=== PATIENT | female | born 1975 | race Caucasian/White ===

== ENCOUNTER 2016-12-26 15:37 | Day surgery (SDC) | payer MEDICAID, OTHER ==
[~2016-12-26] VITALS: Ht 167.6 cm; Wt 96.6 kg
[2016-12-26 16:01] VITALS: BP 122/62
--- NOTE | 2016-12-26 17:00 | NUR ---
Dr. Jessica evaluating patient in [place].
--- NOTE | 2016-12-26 17:08 | NUR ---
Blood draw completed by PHLEB in [place]. Patient returned to ED lobby to wait for an available bed.
--- NOTE | 2016-12-26 17:22 | NUR ---
Patient taken from ED lobby to US via wheelchair by tech.
[2016-12-26 17:38] LABS: BASOPHILS # (AUTO) 0.2 K/uL (0.00-0.22); EOSINOPHILS # (AUTO) 0.1 K/uL (0-0.4); HEMATOCRIT 42.1 % (36-48); HEMOGLOBIN 13.8 g/dL (12.0-16.0); LYMPHOCYTES # (AUTO) 0.9 K/uL (2.5-16.5); MEAN CORPUSCULAR HEMOGLOBIN 30 pg (27-31); MEAN CORPUSCULAR HGB CONC 33 g/dL (33-37); MEAN CORPUSCULAR VOLUME 90 fL (80-94); MONOCYTES # (AUTO) 0.7 K/uL (0.8-1.0); NEUTROPHILS # (AUTO) 2.9 K/uL (1.8-7.7); PLATELET COUNT (AUTO) 194 K/uL (140-450); RED BLOOD CELL COUNT(AUTO) 4.69 MIL/uL (4.20-5.40); RED CELL DISTRIBUTION WIDTH 14.2 % (11.6-13.7); WHITE BLOOD COUNT (AUTO) 4.9 K/uL (4.8-10.8)
[2016-12-26 17:57] LABS: ALBUMIN 3.3 g/dL (3.4-5.0); ANION GAP 13.5 (8-16); CARBON DIOXIDE 22.9 mmol/L (21-32); CREATININE 0.7 mg/dL (0.6-1.3); TOTAL BILIRUBIN 2.6 mg/dL (0.0-1.0)
[2016-12-26 18:02] LABS: POTASSIUM 2.4 mmol/L (3.5-5.1)
--- NOTE | 2016-12-26 18:25 | NUR ---
PT REFERRED TO ER PER TYPEWRITER ASSEMBLER DR. CARCAMO FOR EVALUATON S/P MISSED . DENIES N/V/D; SKIN IS PINK/WARM/DRY; AAOX4 WITH EVEN AND STEADY GAIT; LUNGS CLEAR BL; HR EVEN AND REGULAR; PT DENIES ANY FEVER, CP, SOB, OR COUGH AT THIS TIME; PATIENT STATES PAIN OF 8/10 AT THIS TIME; VSS; PATIENT POSITIONED FOR COMFORT; HOB ELEVATED; BEDRAILS UP X2; BED DOWN. ER MD MADE AWARE OF PT STATUS.
--- NOTE | 2016-12-26 18:40 | NUR ---
PT UNABLE TO PROVIDE URINE SAMPLE AT THIS TIME
--- NOTE | 2016-12-26 19:08 | NUR ---
RN UNAVAILABLE FOR REPORT AT THIS TIME
--- NOTE | 2016-12-26 19:27 | NUR ---
Patient will be admitted to care of DR CARCAMO. Admited to MS. Will go to room 119A. Belongings list completed. Report to JESSIE BLAKELY.
[2016-12-26] MEDS ORDERED: FURO-570 PO (19:38)
[2016-12-26] MEDS ORDERED: SILD50TA PO (19:39)
[2016-12-26] MEDS ORDERED: POTA10TE30 PO (19:40)
[2016-12-26 19:50] VITALS: BP 122/77
--- NOTE | 2016-12-26 19:50 | NUR ---
RECEIVED REPORT FROM ER NURSE, PT ARRIVED ON UNIT IN STABLE CONDITION ON GURNEY, PT AAOX4, PT IS ON RA, IV TO R WRIST 22G, PATENT AND INTACT. SKIN IS INTACT. 1+ PITTING EDEMA ON BILATERAL LOWER EXTREMITIES. LUNGS SOUNDS CLEAR, BOWEL SOUNDS PRESENT IN ALL FOUR QUADRANTS. INITIAL ASSESSMENT COMPLETED, PLAN OF CARE DISCUSSED WITH PT, PT VERBALIZED UNDERSTANDING. ALL SAFETY PRECAUTIONS MET, CALL LIGHT WITHIN REACH, WILL CONTINUE TO MONITOR.
--- NOTE | 2016-12-26 21:05 | NUR ---
PAGED DR. Radha CARCAMO FOR ORDERS FOR IV FLUIDS, PAIN MEDICATION, AND O2, PT IS SOB AND O2 SAT AT 92% RA.
--- NOTE | 2016-12-26 21:08 | NUR ---
DR. Radha CARCAMO CALLED BACK WITH NEW ORDERS, WILL CARRY OUT ORDERS ORDERED.
[2016-12-26] MEDS ORDERED: MORPHINE SULFATE 10 MG/ML SYR IVP PRN (21:10)
[2016-12-26] MEDS ORDERED: LACTATED RINGERS 1,000 ML IV SCH (21:10)
--- NOTE | 2016-12-26 21:43 | NUR ---
PAGED DR. Radha CARCAMO REGARDING POTASSIUM LEVEL 2.4, CALLED BACK, ORDERED 40 MEQ KCL AND HE SAID HE WILL CALL HOTEL ENGINEER FOR SURGERY 365.
--- NOTE | 2016-12-26 21:45 | NUR ---
PAGED DR. Radha CARCAMO FOR POTASSIUM LEVEL OF 2.4. CALLED BACK, MADE AWARE OF RESULT, NO ORDER MADE. Addendum: 12/26/16 at 2333 by Debby Toney RN @[phone] CLAUDETTE CARCAMO TO CLARIFY THE 40 KCL ORDER IF IV OR PO. BUT HE SAID NOT TO GIVE IT FOR NOW.
--- NOTE | 2016-12-26 22:10 | NUR ---
PT SIGNED CONSENT FORMS FOR SURGERY AND BLOOD TRANSFUSION. PT VERBALIZED UNDERSTANDING.
--- NOTE | 2016-12-26 22:30 | NUR ---
PT VOIDED AND SPECIMEN SENT TO THE LAB
--- NOTE | 2016-12-26 22:48 | NUR ---
PICKED UP BY BED TO OR BY OR NURSE, PT IN STABLE CONDITION.
[2016-12-26 22:59] LABS: APPEARANCE,URINE CLOUDY (CLEAR); BILIRUBIN,URINE 2+ (NEGATIVE); BLOOD, URINE 3+ (NEGATIVE); COLOR,URINE BROWN (YELLOW); LEUKOCYTE ESTERASE ,URINE TRACE (NEGATIVE); NITRITE, URINE NEGATIVE (NEGATIVE); UGLUCOSE NEGATIVE (NEGATIVE)
--- NOTE | 2016-12-26 23:10 | NUR ---
PT CAME BACK FROM OR. SURGERY NOT DONE DUE TO LOW POTASSIUM LEVEL. SURGERY RESCHEDULED FOR TOMORROW. WILL CARRY OUT NEW ORDERS.
[2016-12-26 23:17] LABS: HYALINE CASTS, URINE 0-10 /LPF (None Seen); RBC,URINE 11-20 (MOD) /HPF (0-5); WBC,URINE 16-25 (MOD) /HPF (0-5)
[2016-12-26] MEDS ORDERED: POTASSIUM CHL 40 MEQ/ D5-1/2NS 1,000 ML IV SCH (23:20)
--- NOTE | 2016-12-26 23:45 | NUR ---
IVF LR @100ML /HR DISCONTINUED . NEW IV FLUIDS ORDERED.
[2016-12-26] MEDS: POTASSIUM CHL 40 MEQ/ D5-1/2NS 1,000 ML IV SCH (23:49)
--- NOTE | 2016-12-26 23:49 | NUR ---
NEW IVF D51/2 NS WITH 40 MEQ KCL @125 ML /HR STARTED PER MD ORDER.
--- NOTE | 2016-12-27 00:10 | NUR ---
PAGED AGAIN DR. CARCAMO FOR URINE HAS 4+ BACTERIA. MADE AWARE WITH ORDER.
[2016-12-27 00:30] VITALS: BP 136/66
--- NOTE | 2016-12-27 02:32 | NUR ---
PT RESTING IN BED COMFORTABLY NO S/S OF DISTRESS NOTED. ALL SAFETY PRECAUTIONS MET, CALL LIGHT WITHIN REACH, WILL CONTINUE TO MONITOR.
[2016-12-27 04:00] VITALS: BP 105/73
--- NOTE | 2016-12-27 04:30 | NUR ---
CHECKED IN ON PT. PT RESTING IN BED WITH TV ON. NO S/S OF DISTRESS NOTED. ALL SAFETY PRECAUTIONS MET, CALL LIGHT WITHIN REACH, WILL CONTINUE TO MONITOR.
[2016-12-27] MEDS ORDERED: AMPICILLIN 1,000 MG VIAL ONE (05:04)
[2016-12-27] MEDS: AMPICILLIN 500 MG in NACL 0.9% 50 ML IV SCH ×3 (05:07→21:22)
--- NOTE | 2016-12-27 05:07 | NUR ---
IST DOSE OF AMPICILLIN 500MG IVPB STARTED. WILL CONTINUE TO MONITOR.
[2016-12-27 06:07] LABS: HEMATOCRIT 40.1 % (36-48); HEMOGLOBIN 13.2 g/dL (12.0-16.0); MEAN CORPUSCULAR HEMOGLOBIN 30 pg (27-31); MEAN CORPUSCULAR HGB CONC 33 g/dL (33-37); MEAN CORPUSCULAR VOLUME 90 fL (80-94); PLATELET COUNT (AUTO) 180 K/uL (140-450); RED BLOOD CELL COUNT(AUTO) 4.47 MIL/uL (4.20-5.40); RED CELL DISTRIBUTION WIDTH 14.2 % (11.6-13.7); WHITE BLOOD COUNT (AUTO) 4.8 K/uL (4.8-10.8)
[2016-12-27 06:38] LABS: ALBUMIN 2.9 g/dL (3.4-5.0); ANION GAP 10.9 (8-16); CARBON DIOXIDE 24.7 mmol/L (21-32); CREATININE 0.8 mg/dL (0.6-1.3); TOTAL BILIRUBIN 2.4 mg/dL (0.0-1.0)
[2016-12-27 06:41] LABS: POTASSIUM 2.6 mmol/L (3.5-5.1)
--- NOTE | 2016-12-27 06:47 | NUR ---
@ 0640 LAB CALLED FOR POTASSIUM LEVEL STILL LOW 2.6. PAGED DR. CARCAMO @5299 AND MADE HIM AWARE . HE SAID TO CONTINUE WITH THE IVF WITH KCL AND ALSO CALL DR. MARIN ,ANESTHESIOLOGIST. WHICH I DID AT THIS TIME. SHE WAS MADE AWARE THAT K LEVEL STILL LOW. SHE SAID NO SURGERY YET , TO CONTINUE WITH THE SAME IVF D51/2 NS WITH 40 MEQ KCL @ 125ML/HR.
[2016-12-27 07:09] LABS: EOSINOPHILS % (MANUAL) 2 % (0-4); LYMPHOCYTES % (MANUAL) 30 % (20-46); MONOCYTES % (MANUAL) 15 % (5-12)
[2016-12-27] MEDS ORDERED: MORPHINE SULFATE 4 MG/ML SYR IM/IVP PRN (07:30)
[2016-12-27] MEDS ORDERED: IBUPROFEN 800 MG TAB PO PRN (07:30)
[2016-12-27] MEDS ORDERED: ONDANSETRON 4 MG/2 ML VIAL IVP PRN (07:30)
[2016-12-27] MEDS ORDERED: ACETAMINOPHEN/CODEINE 300/30MG 1 TAB PO PRN (07:30)
--- NOTE | 2016-12-27 07:30 | NUR ---
RECEIVED ON BED AAOX4. NO C/O PAIN AT THIS TIME. NO SOB NOTED. ON 2 LPM OXYGEN VIA NASAL CANNULA (91% O2 SATS). IV TO RT WRIST/HAND PATENT AND INTACT. CHEST CLEAR. ABDOMEN SOFT. BOWEL SOUNDS PRESENT. +1 PITTING EDEMA ONM BLE NOTED. INSTRUCTED PT TO ELEVATE BLE WHILE ON BED. NPO MAINTAINED FOR PROCEDURE. INSTRUCTED PT TO CALL FOR ASSISTANCE, CALL LIGHT WITHIN REACH. PT VERBALIZED UNDERSTANDING.
--- NOTE | 2016-12-27 07:35 | NUR ---
ENDORSED PT IN STABLE CONDITION TO AM NURSE FOR CONTINUITY OF CARE.
[2016-12-27 08:00] VITALS: BP 115/59
[2016-12-27] MEDS: POTASSIUM CHL 40 MEQ/ D5-1/2NS 1,000 ML IV SCH ×3 (08:41→17:54)
--- NOTE | 2016-12-27 09:30 | NUR ---
PT AMBULATED TO THE BATHROOM INDEPENDENTLY. MODERATE VAGINAL BLEEDING NOTED. WILL CONTIN UE TO MONITOR.
[2016-12-27] MEDS ORDERED: PROPOFOL 200 MG/20 ML VIAL IV ONE (10:51)
--- NOTE | 2016-12-27 11:00 | NUR ---
PT WHEELED TO SURGERY IN STABLE CONDITION.
[2016-12-27] MEDS ORDERED: MIDAZOLAM 2 MG/2 ML VIAL ONE (11:05)
[2016-12-27] MEDS ORDERED: fentaNYL 0.05 MG/ML VIAL ONE (11:05)
[2016-12-27] MEDS ORDERED: MIDAZOLAM 2 MG/2 ML VIAL IV ONE ×2 (11:30)
[2016-12-27] MEDS ORDERED: METOCLOPRAMIDE 10 MG/2 ML INJ VIAL IVP PRN ×2 (11:30)
[2016-12-27] MEDS ORDERED: MORPHINE SULFATE 4 MG/ML SYR IVP PRN ×4 (11:30)
[2016-12-27] MEDS ORDERED: MORPHINE SULFATE 2 MG/ML SYR IVP PRN ×2 (11:30)
[2016-12-27 12:00] VITALS: BP 93/60
--- NOTE | 2016-12-27 12:00 | NUR ---
PT CAME BACK FROM SURGERY IN STABLE CONDITION, S/P DILATATION AND CURETTAGE. NO VAGINAL BLEEDING NOTED ON PERIPAD AT THIS TIME. WILL CONTINUE TO MONITOR.
[2016-12-27 12:30] VITALS: BP 96/71
--- NOTE | 2016-12-27 15:00 | NUR ---
VIVIANA CARCAMO, AWAITING FOR CALL BACK. Addendum: 12/27/16 at 1714 by Rosario Kimble RN DISREGARD ABOVE NOTES, WRONG ENTRY.
[2016-12-27 15:45] VITALS: BP 122/53
--- NOTE | 2016-12-27 15:45 | NUR ---
LATEST TEMP: 99.0 F, PT IS HAVING CHILLS, RESPIRATORY THERAPIST CHANGED OXYGEN CANNULA TO SIMPLE MASK AT 7 LPM. PT'S O2 SATS AT 91%. PT AAOX4, BUT STATED SHE IS TIRED AND NOT READY TO GO HOME TODAY. WILL LET DR. Milady CARCAMO KNOW.
--- NOTE | 2016-12-27 16:00 | NUR ---
PAGED DR. Milady CARCAMO, AWAITING FOR CALL BACK.
--- NOTE | 2016-12-27 16:15 | NUR ---
CALLED DR. DEYSI MARIN (ANESTHESIOLOGIST) AND NOTIFIED REGARDING PT'S CHILLS AFTER SURGERY, DR. MARIN STATED IT IS NOT NORMAL AND IS NOT RELATED TO ANESTHESIA. DR. MARIN STATED THAT IT COULD BE FROM PT'S URINARY TRACT INFECTION. WILL PAGED DR. Milady CARCAMO AGAIN TO NOTIFY HIM REGARDING PT'S STATUS.
--- NOTE | 2016-12-27 17:10 | NUR ---
SPOKE WITH OVER THE PHONE. DISCHARGE ORDER CANCELLED. NEW ORDERS GIVEN.
--- NOTE | 2016-12-27 17:30 | NUR ---
PT VOIDED FREELY ON THE BEDSIDE COMMODE, MODERATE VAGINAL BLEEDING NOTED. PT ALSO HAD BMX1, BROWN SOFT STOOLS NOTED ON SMALL AMOUNTS.
--- NOTE | 2016-12-27 18:50 | NUR ---
NO MORE CHILLS NOTED. NO SOB NOTED. NO C/O PAIN AT THIS TIME. PT TOLERATED CLEAR LIQUIDS WELL. NO N&V NOTED. WILL ENDORSE TO NEXT SHIFT NURSE FOR CONTINUITY OF CARE.
--- NOTE | 2016-12-27 19:30 | NUR ---
RECEIVED REPORT FROM DAY RN. PATIENT RESTING IN BED, NO S/S OF ACUTE DISTRESS NOTED, RESPIRATION EVEN AND UNLABORED WITH SIMPLE MASK 7L, O2SAT 91%. PATIENT AWAKE ALERT ORIENTED X4. IV INTACT AND PATENT, INFUSING D5 1/5 NS WITH KCL 40MEQ AT 75ML/HR. PLAN OF CARE DISCUSSED, VERBALIZED UNDERSTANDING. CALL LIGHT WITHIN REACH, SAFETY MEASURE ENSURED, WILL CONTINUE TO MONITOR.
--- NOTE | 2016-12-27 21:27 | NUR ---
PM AMPICILLIN STARTED, PATIENT TOLERATED WELL. CALL LIGHT WITHIN REACH, SAFETY MEASURE ENSURED, WILL CONTINUE TO MONITOR.
--- NOTE | 2016-12-27 23:54 | NUR ---
ENDORSED PLAN OF TO CHARGE NURSE ABIGAIL, PATIENT IS SLEEPING AT THIS TIME. RESPIRATION EVEN AND UNLABORED, CALL LIGHT WITHIN REACH, SAFETY MEASURE ENSURED, PATIENT IS IN STABLE CONDITION.
[2016-12-28] VITALS: BP 103/68
--- NOTE | 2016-12-28 | NUR ---
RECEIVED PT FROM NURSE STONE FOR CONTINUITY OF CARE.NO DISTRESS N OTED O2 ON AT 6L/NC O2 SAT 97%. PT STATED THAT THEY PUT THE O2 WHEN SHE CAME BACK FROM SURGERY. O2 OFF AND WILL CHECKED O2 SAT LATER.
--- NOTE | 2016-12-28 02:00 | NUR ---
PT SLEEPING WHECKED,NO SIGNS OF RESPIRATORY DISTRESS.
--- NOTE | 2016-12-28 04:00 | NUR ---
V/S TAKEN O2 SAT 97% WITH O2 OFF, NO RESPIRATORY DISTRESS NOTED OR C/O PAIN.
[2016-12-28] MEDS: POTASSIUM CHL 40 MEQ/ D5-1/2NS 1,000 ML IV SCH ×2 (04:10→08:25)
[2016-12-28] MEDS: AMPICILLIN 500 MG in NACL 0.9% 50 ML IV SCH (04:38)
[2016-12-28 04:56] VITALS: BP 104/65
[2016-12-28 06:19] LABS: HEMOGLOBIN 13.3 g/dL (12.0-16.0); MEAN CORPUSCULAR HEMOGLOBIN 29 pg (27-31); MEAN CORPUSCULAR HGB CONC 32 g/dL (33-37); MEAN CORPUSCULAR VOLUME 90 fL (80-94); PLATELET COUNT (AUTO) 171 K/uL (140-450); RED BLOOD CELL COUNT(AUTO) 4.55 MIL/uL (4.20-5.40); RED CELL DISTRIBUTION WIDTH 14.5 % (11.6-13.7); WHITE BLOOD COUNT (AUTO) 17.4 K/uL (4.8-10.8)
--- NOTE | 2016-12-28 06:23 | NUR ---
PT RESTING QUIETLY, NO SIGNS OF RESPIRATORY.
[2016-12-28 06:43] LABS: ALBUMIN 2.9 g/dL (3.4-5.0); ANION GAP 13.3 (8-16); CARBON DIOXIDE 23.1 mmol/L (21-32); CREATININE 0.8 mg/dL (0.6-1.3); POTASSIUM 3.4 mmol/L (3.5-5.1); TOTAL BILIRUBIN 4.4 mg/dL (0.0-1.0)
--- NOTE | 2016-12-28 07:01 | NUR ---
ASSUMED CONTINUITY OF CARE. NO SIGNS AND SYMPTOMS OF ACUTE DISTRESS NOTED. INITIAL ASSESSMENT DONE. KEEP COMFORTABLE ON BED. EXPLAINED DIAGNOSIS, PLAN OF CARE, POST-OP CARE, PAIN MANAGEMENT TEACHING, USE OF CALL LIGHT/BED/TV/BATHROOM. VERBALIZE UNDERSTANDING. CALL LIGHT WITHIN REACH.
[2016-12-28 07:10] LABS: LYMPHOCYTES % (MANUAL) 10 % (20-46); MONOCYTES % (MANUAL) 3 % (5-12)
--- NOTE | 2016-12-28 07:10 | NUR ---
Patient's Plan of Care was discussed and reviewed with DIGITAL PRINTER: YUE AGUILAR.
--- NOTE | 2016-12-28 07:29 | NUR ---
CHECKED ON PT. PT SPO2 IS 89% ON ROOM AIR. PT REFUSED TO USE OXYGEN. JESSIE TURNER AT BEDSIDE. EXPLAINED TO PT IMPORTANCE OF OXYGEN BUT STILL REFUSED. WILL CONTINUE TO MONITOR. Addendum: 12/28/16 at 0737 by Ej Cheung RT NO SOB OR DISTRESS NOTED.
[2016-12-28 08:00] VITALS: BP 107/58
--- NOTE | 2016-12-28 08:45 | NUR ---
EXPLAINED PT. ABOUT MRSA NARES POSITIVE, CONTACT ISOLATION PRECAUTION EDUCATION, AND TREATMENT. VERBALIZED UNDERSTANDING.
[2016-12-28] MEDS ORDERED: POTA10TE30 PO (10:13)
[2016-12-28] MEDS ORDERED: POTA8TER12 PO (10:14)
--- NOTE | 2016-12-28 10:55 | NUR ---
D/C HOME VIA WHEELCHAIR. AWAKE, ALERT, AND ORIENTED X4. SPEECH CLEAR. NO C/O PAIN. NO C/O VAGINAL BLEEDING. NO SOB, NOTED. IN STABLE CONDITION. INFORMED CHARGE NURSE CINTHIA RICHARDSON.
[2016-12-29] MEDS ORDERED: CHLORHEXADINE GLUC 2% CLOTH TP SCH (09:00)
[2016-12-29] MEDS ORDERED: MUPIROCIN 2% OINT 22 GM TUBE TP SCH (12:00)
== END 2016-12-28 10:55 | disposition home or self-care (01) ==
LOC: MED 15:37 → MDS 18:41 → MTU 18:41 → MDS 12-28 10:55
PROVIDERS: ATTEND Obstetrics & Gynecology
DX: O03.4 Incomplete spontaneous abortion without complication (principal); I50.9 Heart failure, unspecified; Z90.49 Acquired absence of other specified parts of digestive tract; Z98.890 Other specified postprocedural states; Z79.899 Other long term (current) drug therapy; Z3A.10 10 weeks gestation of pregnancy
CPT/HCPCS: 36415; 59812; 76817; 80053; 81001; 84702; 85025; 85730; 86886; 86900; 86901; 87081; 87086; 94760; J0290; J2250; J2270; J2704; J3010; J7120

== ENCOUNTER 2017-03-04 23:44 | Inpatient (IN) | payer OTHER ==
[~2017-03-04] VITALS: Ht 167.6 cm; Wt 108.9 kg
[~2017-03-04 23:44] MED LIST: FURO-570 PO; POTA10TE30 PO; POTA8TER12 PO; SILD50TA PO
[2017-03-04 23:47] VITALS: BP 144/81
--- NOTE | 2017-03-04 23:54 | NUR ---
AMBULATED TO ER BED 1
--- NOTE | 2017-03-05 00:01 | NUR ---
Patient being evaluated by physician at bedside.
[2017-03-05 00:17] LABS: HEMATOCRIT 38.1 % (36-48); HEMOGLOBIN 12.3 g/dL (12.0-16.0); MEAN CORPUSCULAR HEMOGLOBIN 27 pg (27-31); MEAN CORPUSCULAR HGB CONC 32 g/dL (33-37); MEAN CORPUSCULAR VOLUME 84 fL (80-94); PLATELET COUNT (AUTO) 237 K/uL (140-450); RED BLOOD CELL COUNT(AUTO) 4.55 MIL/uL (4.20-5.40); RED CELL DISTRIBUTION WIDTH 15.1 % (11.6-13.7); WHITE BLOOD COUNT (AUTO) 5.3 K/uL (4.8-10.8)
[2017-03-05 00:33] LABS: ALBUMIN 3.3 g/dL (3.4-5.0); ANION GAP 13.3 (8-16); CARBON DIOXIDE 27.9 mmol/L (21-32); TOTAL BILIRUBIN 3.9 mg/dL (0.0-1.0)
[2017-03-05 00:34] LABS: EOSINOPHILS % (MANUAL) 1 % (0-4); LYMPHOCYTES % (MANUAL) 21 % (20-46); MONOCYTES % (MANUAL) 10 % (5-12)
[2017-03-05 00:37] LABS: POTASSIUM 2.2 mmol/L (3.5-5.1)
[2017-03-05] MEDS ORDERED: KCL 20 MEQ/WATER INJ PREMIX 100 ML IV ONE (00:40)
[2017-03-05 00:45] LABS: CREATINE KINASE MB 2.4 ng/mL (0-3.6)
[2017-03-05] MEDS ORDERED: FUROSEMIDE 40 MG/4 ML VIAL IVP ONE (00:45)
[2017-03-05] MEDS ORDERED: POTASSIUM CHLORIDE 20% 40 MEQ/15 ML UDC PO ONE (00:50)
[2017-03-05] MEDS ORDERED: IPRATROPIUM 0.02% 0.5 MG/2.5 ML NEBU INH PRN (00:55)
[2017-03-05] MEDS ORDERED: MAGNESIUM OXIDE 400 MG TAB PO PRN (00:55)
[2017-03-05] MEDS ORDERED: MAG SULF 2000 MG/WATER PREMIX 50 ML IV PRN (00:55)
[2017-03-05] MEDS ORDERED: DOCUSATE SODIUM 250 MG GELCAP PO PRN (00:55)
[2017-03-05] MEDS ORDERED: cloNIDine 0.1 MG TAB PO PRN (00:55)
[2017-03-05] MEDS ORDERED: ZOLPIDEM 5 MG TAB PO PRN (00:55)
[2017-03-05] MEDS ORDERED: ONDANSETRON 4 MG/2 ML VIAL IVP PRN (00:55)
[2017-03-05] MEDS ORDERED: ALUMINUM HYD/MAG/SIMETHICONE 30 ML UDC PO PRN (00:55)
[2017-03-05] MEDS ORDERED: ACETAMINOPHEN 325 MG TAB PO PRN (00:55)
[2017-03-05] MEDS ORDERED: diphenhydrAMINE 50 MG/ML VIAL IVP PRN (00:55)
[2017-03-05] MEDS ORDERED: ACETAMINOPHEN 650 MG SUPP RC PRN (00:55)
[2017-03-05] MEDS ORDERED: HYDROcodone/APAP 5/325 MG 1 TAB TAB PO PRN ×2 (00:55)
[2017-03-05] MEDS ORDERED: BISACODYL 10 MG SUPP RC PRN (00:55)
[2017-03-05] MEDS ORDERED: ALBUTEROL 0.083% 2.5 MG/3 ML NEBU INH PRN (00:55)
[2017-03-05] MEDS ORDERED: LORazepam 2 MG/ML VIAL IVP PRN (00:55)
[2017-03-05] MEDS ORDERED: MORPHINE SULFATE 2 MG/ML SYR IVP PRN (00:55)
[2017-03-05] MEDS ORDERED: SODIUM PHOSPHATE 118 ML ENEM RC PRN (00:55)
[2017-03-05] MEDS ORDERED: POTASSIUM CHLORIDE 10 MEQ TABER PO PRN (00:55)
--- NOTE | 2017-03-05 01:00 | NUR ---
41Y/F PT. PRESENTS TO ED WITH C/O DIFFICULTY BREATHING X 2 DAYS. PT. HX. CHF, HTN. AAO X4, AMBULATORY WITH STEADY GAIT. RESPIRTAIONS ROOM AIR, IRREGULAR, BL LUNG CLEAR. O2 SAT 87%, PLACE ON O2 2LPM VIA NC, O 2 SAT 92-93%. SKIN WARM AND DRY. VSS, NO PAIN AT THIS TIME. ER MD MADE AWARE OF PT. STATUS.
--- NOTE | 2017-03-05 01:15 | NUR ---
O2 SAT 88% INCREASE O2 VIA NC TO 4LPM, O2 SAT 93%
[2017-03-05 01:44] LABS: BARBITURATE, URINE NEG. ng/ml (NEG <=200); BENZODIAZEPINE, URINE NEG. ng/mL (NEG <=200); CANNABINOID, URINE NEG. ng/mL (NEG <=50); COCAINE, URINE NEG. ng/mL (NEG <=300); OPIATE, URINE NEG. ng/mL (NEG <=2000); PHENCYCLIDINE SCREEN,URINE NEG. ng/mL (NEG <=25)
--- NOTE | 2017-03-05 01:45 | NUR ---
Patient will be admitted to care of . Admited to TELEMETRY. Will go to [id number]. Belongings list completed. Report to JESSIE HOYOS.
[2017-03-05 02:00] VITALS: BP 122/76
--- NOTE | 2017-03-05 02:00 | NUR ---
RECEIVED PT TRANSFERRED FROM ER VIA RJOHNSON, PT IS AAOX4, ABLE TO FOLLOW COMMANDS AND MAKE NEEDS KNOWN, VSS, DENIES PAIN, NO S/S OF DISTRESS, CLEAR LUNG SOUNDS, ON O2 AT 4L VIA NC, DENIES CHEST PAIN, SOFT ABDOMEN WITH ACTIVE BOWEL SOUNDS, CONTINENT WITH B&B'S, ABLE TO MOVE ALL EXTREMITIES, SKIN IS INTACT, WARM AND DRY TO TOUCH. IV SITE TO LEFT AC 18GA RUNNING KCL AT 50ML/HR, NOT ABLE TO TOLERATED AT THIS TIME, TOLERATED ONLY TO 10ML/HR, MADE AWARE. EXPLAINED THE PLAN OF CARE, PT VERBALIZED UNDERSTANDING, FALL PRECAUTION IN PLACE, CALL LIGHT WITHIN REACH, WILL CONTINUE TO MONITOR.
--- NOTE | 2017-03-05 02:45 | NUR ---
PT STATED HUNGRY, FOOD OFFERED AND SERVED. PT TOLERATED WELL.
--- NOTE | 2017-03-05 04:00 | NUR ---
PT IS ASLEEP IN BED, VSS, NO S/S OF DISTRESS OR CHEST PAIN
--- NOTE | 2017-03-05 07:10 | NUR ---
REPORT GIVEN TO AM RN AT BEDSIDE FOR CONTINUE OF CARE, PT IS IN STABLE CONDITION AT THIS TIME.
--- NOTE | 2017-03-05 07:15 | NUR ---
REPORT RECEIVED FROM WAREHOUSE ORDER SELECTOR, PT SLEEPING QUIETLY IN NAD, AROUSES EASILY BY VOICE, RESP EVEN UNLABORED, SKIN WARM DRY COLOR WNL, NO C/O PAIN OR DISCOMFORT, PLAN OF CARE REVIEWED, PT VERBALIZED FULL UNDERSTANDING, CALL GRAY WITHIN REACH, SIDE RAILS UP, WILL CONTINUE TO MONITOR.
[2017-03-05 07:53] LABS: ANION GAP 14.2 (8-16); CARBON DIOXIDE 26.4 mmol/L (21-32)
[2017-03-05 08:00] VITALS: BP 124/81
[2017-03-05] MEDS ORDERED: INFLUENZA VIRUS VACCINE QUAD 0.5 ML SYR IMVAC SCH (08:00)
[2017-03-05 08:10] LABS: CREATININE 0.9 mg/dL (0.6-1.3)
[2017-03-05 08:12] LABS: POTASSIUM 2.6 mmol/L (3.5-5.1)
[2017-03-05] MEDS: FUROSEMIDE 40 MG/4 ML VIAL IVP SCH ×2 (08:39→20:03)
[2017-03-05] MEDS: POTASSIUM CHLORIDE 10 MEQ TABER PO SCH ×2 (08:40→20:03)
--- NOTE | 2017-03-05 09:27 | NUR ---
K RIDER WITH LIDOCAIN STARTED FOR K= 2.6 THIS AM, IV SITE WNL, WILL CONTINUE TO MONITOR.
[2017-03-05] MEDS: POTASSIUM CHLORIDE 40 MEQ, LIDOCAINE 1% 25 MG in NACL 0.9% 250 ML IV PRN (09:29)
[2017-03-05] MEDS ORDERED: LORazepam 1 MG TAB PO PRN (11:05)
--- NOTE | 2017-03-05 11:16 | NUR ---
CM NOTE INITIAL REVIEW FAXED TO [facility] / FAX# [phone], ATTN: FLYNN #[phone]
[2017-03-05 12:00] VITALS: BP 116/68
[2017-03-05] MEDS ORDERED: POTASSIUM CHLORIDE 10 MEQ TABER PO SCH (12:00)
--- NOTE | 2017-03-05 12:39 | NUR ---
US AT BEDSIDE
--- NOTE | 2017-03-05 12:57 | NUR ---
PATIENT HAS BEEN SCREENED AND CATEGORIZED MODERATE NUTRITION RISK. PATIENT WILL BE SEEN WITHIN 3-5 DAYS OF ADMISSION. 03/07/17-03/09/[address]
--- NOTE | 2017-03-05 13:46 | NUR ---
PT SITTING UP EATING LUNCH, DENIES ANY IMMEDIATE NEEDS, WILL CONTINUE TO MONITOR.
[2017-03-05 16:00] VITALS: BP 118/78
--- NOTE | 2017-03-05 17:33 | NUR ---
PT SITTING UP IN BED WATCHING TV, RESP EVEN UNLABORED ON 4L NC O2, SKIN WARM DRY COLOR WNL, DENIES PAIN OR DISCOMFORT, DENIES ANY IMMEDIATE NEEDS, CALL GRAY WITHIN REACH, SIDE RAILS UP, BED LOCKED IN LOW POSITION, WILL CONTINUE TO MONITOR.
--- NOTE | 2017-03-05 18:10 | NUR ---
DR BUTT AT BEDSIDE.
--- NOTE | 2017-03-05 19:17 | NUR ---
REPORT GIVEN TO [facility] FOR THE FEEBLE-MINDED SHIFT NURSE RAF VELAZQUEZ IN STABLE CONDITION.
--- NOTE | 2017-03-05 19:18 | NUR ---
PATIENT REPORT RECEIVED FROM MORNING NURSE. PATIENT IS AWAKE, ALERT, AND ORIENTED. NO SIGNS AND SYMPTOMS OF DISTRESS NOTED. BREATHING EVEN AND UNLABORED. PATIENT IS ON O2 4L VIA NC. IV SITE NOTED ON BOTH RIGHT AND LEFT AC, INTACT AND PATENT. BED IN FOWLERS POSITION, SIDE RAILS UP AND CALL LIGHT WITHIN REACH. WILL CONTINUE TO MONITOR.
[2017-03-05 20:00] VITALS: BP 119/72
[2017-03-05] MEDS: guaiFENesin DM 200/20 MG-10 ML 10 ML UDC PO PRN (20:16)
[2017-03-06] VITALS: BP 98/66
--- NOTE | 2017-03-06 00:16 | NUR ---
CHECKED ON PATIENT. PATIENT IS ASLEEP. NO SIGNS AND SYMPTOMS OF DISTRESS NOTED. BREATHING EVEN. BED IN LOWEST POSITION, SIDE RAILS UP AND CALL LIGHT WITHIN REACH. WILL CONTINUE TO MONITOR.
[2017-03-06] MEDS: guaiFENesin DM 200/20 MG-10 ML 10 ML UDC PO PRN (02:45)
[2017-03-06 04:00] VITALS: BP 109/79
[2017-03-06 06:56] LABS: BASOPHILS # (AUTO) 0.2 K/uL (0.00-0.22); BASOPHILS % (AUTO) 3.5 % (0.0-2.0); EOSINOPHILS # (AUTO) 0.1 K/uL (0-0.4); HEMATOCRIT 38.4 % (36-48); HEMOGLOBIN 12.7 g/dL (12.0-16.0); LYMPHOCYTES # (AUTO) 1.1 K/uL (2.5-16.5); LYMPHOCYTES % (AUTO) 18.8 % (20.5-51.1); MEAN CORPUSCULAR HEMOGLOBIN 27 pg (27-31); MEAN CORPUSCULAR HGB CONC 33 g/dL (33-37); MEAN CORPUSCULAR VOLUME 83 fL (80-94); MONOCYTES # (AUTO) 0.7 K/uL (0.8-1.0); NEUTROPHILS # (AUTO) 3.6 K/uL (1.8-7.7); NEUTROPHILS % (AUTO) 63.7 % (42.2-75.2); PLATELET COUNT (AUTO) 213 K/uL (140-450); RED BLOOD CELL COUNT(AUTO) 4.62 MIL/uL (4.20-5.40); RED CELL DISTRIBUTION WIDTH 15.7 % (11.6-13.7); WHITE BLOOD COUNT (AUTO) 5.7 K/uL (4.8-10.8)
[2017-03-06 07:15] LABS: ALBUMIN 3.1 g/dL (3.4-5.0); CARBON DIOXIDE 25.7 mmol/L (21-32); CREATININE 0.8 mg/dL (0.6-1.3); TOTAL BILIRUBIN 3.3 mg/dL (0.0-1.0)
[2017-03-06 07:21] LABS: POTASSIUM 2.7 mmol/L (3.5-5.1)
--- NOTE | 2017-03-06 07:21 | NUR ---
PATIENT REPORT GIVEN TO MORNING NURSE AT BEDSIDE. PATIENT IS IN STABLE CONDITION.
--- NOTE | 2017-03-06 07:25 | NUR ---
ENDORSEMENT RECEIVED FROM SURVEY AND MAPPING TECHNICIAN NURSE. PATIENT IS STABLE, RESPIRATION EVEN. SKIN DRY AND WARM TO THE TOUCH. CALL LIGHT WITHIN REACH. WILL CONTINUE TO MONITOR
[2017-03-06 08:00] VITALS: BP 119/76
--- NOTE | 2017-03-06 08:00 | NUR ---
PATIENT AWAKE, ALERT, ORIENTED X 4. PUPILS EQUAL REACTIVE TO LIGHT. RESPIRATION EVEN, LUNGS SOUND CLEAR THROUGHOUT. CARDIAC WITH S1,S2 PRESENT. BOWEL SOUND ACTIVE ALL 4 QUADRANTS. SKIN INTACT, DRY AND WARM TO THE TOUCH. IV 20G ON RIGHT AC SALINE LOCK, PATENT AND INTACT, IV 18G ON LEFT AC SALINE LOCK, PATENT AND INTACT. DENIED OF PAIN AT THIS TIME. CALL LIGHT WITHIN REACH. WILL CONTINUE TO MONITOR
[2017-03-06] MEDS: POTASSIUM CHLORIDE 10 MEQ TABER PO SCH ×2 (08:17→20:23)
[2017-03-06] MEDS: FUROSEMIDE 40 MG/4 ML VIAL IVP SCH ×2 (08:17→20:21)
[2017-03-06] MEDS: POTASSIUM CHLORIDE 40 MEQ, LIDOCAINE 1% 25 MG in NACL 0.9% 250 ML IV PRN (08:26)
--- NOTE | 2017-03-06 08:45 | NUR ---
PATIENT WAS PUT ON ROOM AIR BUT DESAT TO 88%. 2L NC WAS PUT BACK ON, PULSE OX 93%.
--- NOTE | 2017-03-06 10:00 | NUR ---
SENIOR ORACLE DATABASE ADMINISTRATOR WAS AT BEDSIDE. BUBBLE U/S TEST WAS DONE. PATIENT TOLERATED WELL. NO DISTRESS NOTED. CALL LIGHT WITHIN REACH. WILL CONTINUE TO MONITOR.
[2017-03-06 12:00] VITALS: BP 116/60
--- NOTE | 2017-03-06 12:20 | NUR ---
PATIENT AWAKE, ALERT, WATCHING TV. RESPIRATION EVEN, NO DISTRESS NOTED. DENIED PAIN AT THIS TIME. CALL LIGHT WITHIN REACH. WILL CONTINUE TO MONITOR
--- NOTE | 2017-03-06 12:22 | NUR ---
PATIENT DESAT TO 89% ON 2L VIA NC. OXYGEN IS INCREASED TO 4L. WILL CONTINUE TO MONITOR
--- NOTE | 2017-03-06 14:37 | NUR ---
PATIENT IS ASLEEP. RESPIRATION EVEN, NO DISTRESS NOTED. CALL LIGHT WITHIN REACH. WILL CONTINUE TO MONITOR
[2017-03-06 16:00] VITALS: BP 119/66
--- NOTE | 2017-03-06 16:09 | NUR ---
FAXED CONCURRENT REVIEW TO [facility] [phone] PHONE FLYNN [phone] RECEIVED ORDER FOR HOME O2. CALLED FLYNN FROM [facility]. SHE SAID TO USE [facility]. CALLED SARAH FROM [facility], . HE SAID TO FAX THE ABG'S, FACE SHEET AND H&P TO [employer] AT [phone]., WHICH I DID.
[2017-03-06 16:27] LABS: MAGNESIUM 1.7 mg/dL (1.8-2.4); POTASSIUM 3.1 mmol/L (3.5-5.1)
--- NOTE | 2017-03-06 16:30 | NUR ---
PATIENT IS SLEEPING COMFORTABLY. RESPIRATION EVEN, NO DISTRESS NOTED. CALL LIGHT WITHIN REACH. WILL CONTINUE TO MONITOR
--- NOTE | 2017-03-06 18:45 | NUR ---
PATIENT IS SLEEPING COMFORTABLE, NO DISTRESS NOTED. RESPIRATION EVEN, UNLABOR. ON 4L NC. CALL LIGHT WITHIN REACH. WILL CONTINUE TO MONITOR
--- NOTE | 2017-03-06 19:26 | NUR ---
ENDORSEMENT GIVEN TO THE SAND SIFTER NURSE. PATIENT IS STABLE AT THIS TIME. NO DISTRESS NOTED
--- NOTE | 2017-03-06 19:27 | NUR ---
PATIENT REPORT RECEIVED FROM MORNING NURSE. PATIENT IS AWAKE, ALERT AND ORIENTED. NO SIGNS AND SYMPTOMS OF DISTRESS NOTED. NO COMPLAINTS OF PAIN AT THIS TIME. PATIENT ON 4L 02 VIA NC. BED IN LOWEST POSITION, SIDE RAILS UP AND CALL LIGHT WITHIN REACH.
[2017-03-06 20:00] VITALS: BP 97/55
[2017-03-07] VITALS: BP 101/60
[2017-03-07 04:00] VITALS: BP 116/63
[2017-03-07 07:06] LABS: ALBUMIN 2.8 g/dL (3.4-5.0); ANION GAP 12.6 (8-16); CARBON DIOXIDE 26.4 mmol/L (21-32); CREATININE 0.7 mg/dL (0.6-1.3); TOTAL BILIRUBIN 2.2 mg/dL (0.0-1.0)
[2017-03-07 07:09] LABS: HEMATOCRIT 37.6 % (36-48); HEMOGLOBIN 12.1 g/dL (12.0-16.0); MEAN CORPUSCULAR HEMOGLOBIN 27 pg (27-31); MEAN CORPUSCULAR HGB CONC 32 g/dL (33-37); MEAN CORPUSCULAR VOLUME 84 fL (80-94); NEUTROPHILS % (AUTO) 52.3 % (42.2-75.2); PLATELET COUNT (AUTO) 211 K/uL (140-450); RED BLOOD CELL COUNT(AUTO) 4.48 MIL/uL (4.20-5.40); RED CELL DISTRIBUTION WIDTH 16.8 % (11.6-13.7); WHITE BLOOD COUNT (AUTO) 4.9 K/uL (4.8-10.8)
[2017-03-07 07:10] LABS: BASOPHILS % (AUTO) 0.3 % (0.0-2.0); EOSINOPHILS # (AUTO) 0.1 K/uL (0-0.4); EOSINOPHILS % (AUTO) 2.6 % (0.0-4.0); LYMPHOCYTES # (AUTO) 1.6 K/uL (2.5-16.5); LYMPHOCYTES % (AUTO) 32.3 % (20.5-51.1); MONOCYTES # (AUTO) 0.6 K/uL (0.8-1.0); MONOCYTES % (AUTO) 12.5 % (1.7-9.3); NEUTROPHILS # (AUTO) 2.6 K/uL (1.8-7.7)
--- NOTE | 2017-03-07 07:18 | NUR ---
PATIENT REPORT GIVEN TO MORNING NURSE AT BEDSIDE. PATIENT IS IN STABLE CONDITION.
--- NOTE | 2017-03-07 07:30 | NUR ---
RECEIVED PT REPORT AT BEDSIDE FROM CUSTODIAL WORKER. PATIENT AWAKE, ALERT, ORIENTED X 4. NO S/S OF ACUTE DISTRESS. BOWEL SOUND ACTIVE ALL 4 QUADRANTS. SKIN INTACT, DRY AND WARM TO THE TOUCH. IV 18G ON LEFT FA SALINE LOCK, PATENT AND INTACT, DENIED OF PAIN AT THIS TIME. CALL LIGHT WITHIN REACH. WILL CONTINUE TO MONITOR
[2017-03-07 08:00] VITALS: BP 120/67
[2017-03-07] MEDS: FUROSEMIDE 40 MG/4 ML VIAL IVP SCH (08:14)
[2017-03-07] MEDS: POTASSIUM CHLORIDE 10 MEQ TABER PO SCH (08:14)
[2017-03-07 12:20] VITALS: BP 111/76
--- NOTE | 2017-03-07 13:00 | NUR ---
PATIENT IS SLEEPING COMFORTABLE, NO DISTRESS NOTED. RESPIRATION EVEN, UNLABORED. ON 4L NC. CALL LIGHT WITHIN REACH. WILL CONTINUE TO MONITOR
[2017-03-07] MEDS ORDERED: SILDENAFIL 20 MG TAB PO SCH ×2 (13:15→17:00)
[2017-03-07] MEDS ORDERED: POTASSIUM CHLORIDE 10 MEQ TABER PO ONE (14:05)
[2017-03-07] MEDS ORDERED: MAG SULF 2000 MG/WATER PREMIX 50 ML IV SCH (14:13)
[2017-03-07] MEDS ORDERED: POTASSIUM CHLORIDE 10 MEQ TABER PO SCH (14:14)
--- NOTE | 2017-03-07 14:27 | NUR ---
SPOT O2 CHECK DONE ON PT, ON 4LPM NC WITH O2 SAT 88-89%, OBSERVED PT MOUTH BREATHING, PT CONFIRMED THAT HER NOSE IS USUALLY CONGESTED AND BREATHES THROUGH HER MOUTH OFTEN, OTHERWISE PT HAS NO COMPLAINS OF RESP DISTRESS OR SOB, PLACED ON 4LPM SIMPLE MASK WITH O2SAT 91-92%, CONSULTED WITH IV RN SARIKA, WILL CONTINUE TO MONITOR SATURATIONS. Addendum: 03/07/17 at 1454 by Jagdish Pederson RT PRN HHN TX GIVEN, TOLERATED WELL, BREATH SOUNDS CLEAR AND DIMINISHED AT THE BASES
--- NOTE | 2017-03-07 14:30 | NUR ---
PATIENT IS AWAKE AND ALERT, SEEN BY DR HURD. COMFORTABLE, NO DISTRESS NOTED. RESPIRATION EVEN, UNLABOR. ON 4L NC. CALL LIGHT WITHIN REACH. WILL CONTINUE TO MONITOR.
[2017-03-07 16:00] VITALS: BP 122/69
--- NOTE | 2017-03-07 16:26 | NUR ---
FAXED CONCURRENT REVIEW TO [facility] [phone] FLYNN PHONE [phone] SPOKE WITH SARAH FROM [facility]. HE SAID HE WILL BE DELIVERING THE OXYGEN AND CONCENTRATOR TO THE HOUSE. I INFORMED HIM THAT I ALSO GOT AND ORDER FOR A NEBULIZER. HE SAID HE COULD DELIVER THAT TOO. PER ANITA AT [facility], THE AUTH FOR THE NEBULIZER IS [id number], SARAH AWARE. ORDER FAXED TO SARAH FROM [facility]. SARAH ALSO SAID THE AUTH FROM [facility] FOR THE OXYGENT IS [id number].
[2017-03-07] MEDS ORDERED: PRON INH ×4 (17:02→17:07)
--- NOTE | 2017-03-07 17:35 | NUR ---
DISCHARGE INSTRUCTIONS GIVEN. MEDICATION TEACHING PROVIDED. PT VERBLIZED UNDERSTANDING. IV CATH DISCONTINUED, TIP INTACT. FLU VACCINE GIVEN. FLU INFORMATION SHEET PROVIDE. PT LEFT WITH ALL HER BELONGINGS AND IN STABLE CONDITION.
== END 2017-03-07 18:40 | disposition home or self-care (01) | DRG 133 ==
LOC: MED 23:44 → MTU 03-05 00:54
PROVIDERS: ADMIT Hospitalist; ATTEND Hospitalist
PROC: 3E0234Z Introduction of Serum, Toxoid and Vaccine into Muscle, Percutaneous Approach (ICD-10-PCS; principal; 2017-03-07)
DX: J96.01 Acute respiratory failure with hypoxia (principal); I50.43 Acute on chronic combined systolic (congestive) and diastolic (congestive) heart failure; I27.21 Secondary pulmonary arterial hypertension; Z99.81 Dependence on supplemental oxygen; I11.0 Hypertensive heart disease with heart failure; I07.1 Rheumatic tricuspid insufficiency; E87.6 Hypokalemia; F12.90 Cannabis use, unspecified, uncomplicated; F17.210 Nicotine dependence, cigarettes, uncomplicated; F15.10 Other stimulant abuse, uncomplicated; Z91.19 Patient's noncompliance with other medical treatment and regimen; Z23 Encounter for immunization
CPT/HCPCS: 36415; 36600; 71010; 80048; 80053; 80305; 81025; 82550; 82553; 82803; 83690; 83735; 83880; 84132; 84484; 85025; 87081; 90658; 93005; 93970; 94640; 96365; 96375; 99291; J1940; J2001; J3475; J3480; J7030; J7613; J7644; Q0092

== ENCOUNTER 2017-03-22 06:25 | Inpatient (IN) | payer OTHER ==
[~2017-03-22] VITALS: Ht 167.6 cm; Wt 108.6 kg
[~2017-03-22 06:25] MED LIST changes: -POTA8TER12 PO; +PRON INH
[2017-03-22 06:31] VITALS: BP 126/73
--- NOTE | 2017-03-22 06:36 | NUR ---
41 Y/O F W/C/O SOB/CHEST/BACK PAIN X 1 WK ON AND OFF. O2 SAT 79 % PT PLACED ON 05 22 LT VIA NC. LABORED/ RETRACTIVE BREATHING NOTED, LUNGS CLEAR BILATERAL. RT AND MD CALLED AT BEDSIDE.
--- NOTE | 2017-03-22 06:36 | NUR ---
Patient ambulated to bed 04.
[2017-03-22] MEDS ORDERED: methylPREDNISolone SS 125 MG in WATER STERILE 2 ML IV ONE (06:40)
[2017-03-22] MEDS ORDERED: ALBUTEROL SULFATE/IPRATROPIU 3 ML SOL IH ONE (06:40)
--- NOTE | 2017-03-22 06:45 | NUR ---
RT AT BEDSIDE.
--- NOTE | 2017-03-22 06:55 | NUR ---
XRAY AT BEDSIDE.
[2017-03-22 07:04] LABS: BASOPHILS # (AUTO) 0.3 K/uL (0.00-0.22); BASOPHILS % (AUTO) 2.5 % (0.0-2.0); EOSINOPHILS % (AUTO) 0.3 % (0.0-4.0); HEMATOCRIT 38.8 % (36-48); HEMOGLOBIN 12.5 g/dL (12.0-16.0); LYMPHOCYTES # (AUTO) 0.9 K/uL (2.5-16.5); LYMPHOCYTES % (AUTO) 7.4 % (20.5-51.1); MEAN CORPUSCULAR HEMOGLOBIN 26 pg (27-31); MEAN CORPUSCULAR HGB CONC 32 g/dL (33-37); MEAN CORPUSCULAR VOLUME 82 fL (80-94); MONOCYTES # (AUTO) 1.6 K/uL (0.8-1.0); MONOCYTES % (AUTO) 12.9 % (1.7-9.3); NEUTROPHILS # (AUTO) 9.7 K/uL (1.8-7.7); NEUTROPHILS % (AUTO) 76.9 % (42.2-75.2); PLATELET COUNT (AUTO) 378 K/uL (140-450); RED BLOOD CELL COUNT(AUTO) 4.73 MIL/uL (4.20-5.40); RED CELL DISTRIBUTION WIDTH 17.6 % (11.6-13.7); WHITE BLOOD COUNT (AUTO) 12.5 K/uL (4.8-10.8)
[2017-03-22 07:08] VITALS: BP 0/0
--- NOTE | 2017-03-22 07:10 | NUR ---
Pt report given to JESSIE ARMIJO. Transfer of care at this time.
[2017-03-22 07:15] LABS: ANION GAP 13.8 (8-16); CARBON DIOXIDE 28.3 mmol/L (21-32); POTASSIUM 3.1 mmol/L (3.5-5.1)
--- NOTE | 2017-03-22 07:15 | NUR ---
RECEIVED REPORT FROM DICK ROMAN; RT BY BEDSIDE; BIPAP INITIATED; PT TOLERATING WELL; PT IS AOX4, NAD AT THIS TIME; WILL CONTINUE TO MONITOR
[2017-03-22 07:20] LABS: ALBUMIN 2.8 g/dL (3.4-5.0); TOTAL BILIRUBIN 5.1 mg/dL (0.0-1.0)
--- NOTE | 2017-03-22 07:20 | NUR ---
INFORMED PT FOR URINE SAMPLE; PT VERBALIZED UNDERSTANDING
[2017-03-22 07:29] LABS: CREATINE KINASE MB 0.4 ng/mL (0-3.6)
--- NOTE | 2017-03-22 07:49 | NUR ---
Patient being evaluated by DR CALDERA at bedside.
[2017-03-22] MEDS ORDERED: POTASSIUM CHLORIDE 10 MEQ TABER PO ONE (08:40)
[2017-03-22] MEDS ORDERED: NACL 0.9% 1,000 ML IV ONE (08:40)
--- NOTE | 2017-03-22 09:03 | NUR ---
PATIENT STATES THAT SHE IS ANXIOUS 40+BPM REVIWED WITH DR. ARMIN CAMPA SATURATION 95% ON FIO2 OF 40%
[2017-03-22] MEDS ORDERED: LORazepam 2 MG/ML VIAL IVP ONE (09:05)
[2017-03-22] MEDS ORDERED: ONDANSETRON 4 MG/2 ML VIAL IVP PRN (09:05)
[2017-03-22] MEDS ORDERED: ACETAMINOPHEN 325 MG TAB PO PRN (09:05)
[2017-03-22] MEDS ORDERED: MORPHINE SULFATE 2 MG/ML SYR IVP PRN (09:05)
[2017-03-22] MEDS ORDERED: ALBUTEROL 0.083% 2.5 MG/3 ML NEBU IH PRN (09:05)
[2017-03-22 09:08] VITALS: BP 117/75
[2017-03-22] MEDS ORDERED: MIDAZOLAM 2 MG/2 ML VIAL IVP ONE (09:20)
--- NOTE | 2017-03-22 09:27 | NUR ---
spoke with joy from rt; resp unable to assist with transport at this time; eta 30mins; will follow up; er charge notified
--- NOTE | 2017-03-22 09:50 | NUR ---
Patient will be admitted to care of Jackson LIRIANO. Admited to TEle. Will go to room 112B. Belongings list completed. Report to Orquidea ROMAN.
--- NOTE | 2017-03-22 09:55 | NUR ---
TRANSFERRED PATIENT TO [facility] 112-B REMOVED FROM BIPAP PLACED ON SUPPLEMENTAL OXYGEN VIA E-TANK AT 6 LPM VIA MASK SATURATION 96% TOLERATED TRANSFER WELL WITHOUT ADVERSE REACTIONS NOTED BIPAP AT BEDSIDE
--- NOTE | 2017-03-22 10:01 | NUR ---
PT ARRIVED TO UNIT VIA GURNEY ACCOMPANIED BY RN. RECEIVED REPORT FROM ALEKSANDER AT BEDSIDE. DR. LANDON AND RT IN ROOM. PT IN STABLE CONDITION.
[2017-03-22 10:08] LABS: BARBITURATE, URINE NEG. ng/ml (NEG <=200); BENZODIAZEPINE, URINE NEG. ng/mL (NEG <=200); CANNABINOID, URINE POS. ng/mL (NEG <=50); COCAINE, URINE NEG. ng/mL (NEG <=300); OPIATE, URINE NEG. ng/mL (NEG <=2000); PHENCYCLIDINE SCREEN,URINE NEG. ng/mL (NEG <=25)
[2017-03-22 11:00] VITALS: BP 113/61
[2017-03-22] MEDS ORDERED: methylPREDNISolone SS 40 MG in WATER STERILE 1 ML IV ONE (12:00)
[2017-03-22] MEDS ORDERED: methylPREDNISolone SS 40 MG/ML VIAL IVP SCH (12:00)
--- NOTE | 2017-03-22 13:05 | NUR ---
PER DR. SOTO CHANGED VENTI MASK TO NASAL CANNULA 3-4 LPM TO ACHIEVE SATURATION 89%-90%
[2017-03-22] MEDS: IPRATROPIUM 0.02% 0.5 MG/2.5 ML NEBU IH SCH ×2 (13:43→19:36)
[2017-03-22] MEDS: ALBUTEROL 0.083% 2.5 MG/3 ML NEBU IH SCH ×2 (13:43→19:36)
--- NOTE | 2017-03-22 13:55 | NUR ---
POST [facility]N THERAPY CHANGED SUPPLEMENTAL OXYGEN DEVICE TO NC AT 4 LPM ADDED HUMIDIFIER CRYSTAL/RN NOTIFIED
[2017-03-22] MEDS: SILDENAFIL 20 MG TAB PO SCH ×2 (14:05→17:39)
[2017-03-22 15:45] LABS: CREATINE KINASE MB 0.5 ng/mL (0-3.6)
--- NOTE | 2017-03-22 15:50 | NUR ---
NO BIPAP ORDER FROM DR. SHAMAR SOTO OR DR. GERALD LANDON BIPAP PULLED FROM ROOM
[2017-03-22 16:00] VITALS: BP 99/59
[2017-03-22] MEDS: guaiFENesin 20 MG/ML UDC PO PRN (18:41)
--- NOTE | 2017-03-22 18:41 | NUR ---
PT HAD COUGH. CALLED DR. CRUMP AND ORDERED ROBITUSSIN FOR COUGH PRN. ADMINISTERED ROBITUSSIN. PT TOLERATED MED WELL. NO SIGNS OF RESPIRATORY DISTRESS. PT ON O2 NC 4L. O2 SAT 95%. PT IN STABLE CONDITION.
--- NOTE | 2017-03-22 19:29 | NUR ---
ENDORSED PT TO CONCRETE SCULPTOR NURSE MEET AT BEDSIDE FOR CONTINUITY OF CARE. PT IN STABLE CONDITION.
--- NOTE | 2017-03-22 19:30 | NUR ---
RECEIVED REPORT FROM DAY RN SANCHEZ, PATIENT RESTING IN BED, NO S/S OF DISTRESS NOTED, PATIENT IS ON O2 NC 4L, O2SAT 89%, PER DAY SHIFT NURSE, DR. LANDON IS AWARE OF PATIENT'S O2SAT AT 88%, AND IS OKAY WITH THIS O2SAT STATUS. CALL LIGHT WITHIN REACH, SAFETY MEASURE ENSURED, WILL CONTINUE TO MONITOR.
[2017-03-22 20:00] VITALS: BP 91/46
--- NOTE | 2017-03-22 22:38 | NUR ---
RT IS PROVIDING BREATHING TREATMENT AT THE BEDSIDE, PATIENT RESTING IN BED, NO S/S OF DISTRESS NOTED, CALL LIGHT WITHIN REACH, SAFETY MEASURE ENSURED, WILL CONTINUE TO MONITOR. Addendum: 03/22/17 at 2240 by Palak Bailey RN RT PROVIDING BREATHING TREATMENT AT 1936
--- NOTE | 2017-03-22 22:53 | NUR ---
PATIENT RESTING IN BED, NO S/S OF DISTRESS NOTED, O2SAT 93%. CALL LIGHT WITHIN REACH, SAFETY MEASURE ENSURED ,WILL CONTINUE TO MONITOR.
[2017-03-23] VITALS: BP 103/72
[2017-03-23] MEDS: ALBUTEROL 0.083% 2.5 MG/3 ML NEBU IH SCH ×3 (01:06→13:00)
[2017-03-23] MEDS: IPRATROPIUM 0.02% 0.5 MG/2.5 ML NEBU IH SCH ×3 (01:06→13:00)
--- NOTE | 2017-03-23 02:01 | NUR ---
RT PUT PATIENT BACK ON VENTURI MASK 50% BECAUSE PATIENT IS A MOUTH BREATHER. PATIENT RESTING IN BED, NO S/S OF DISTRESS NOTED, RESPIRATION EVEN AND UNLABORED, CALL LIGHT WITHIN REACH, SAFETY MEASURE ENSURED ,WILL CONTINUE TO MONITOR.
[2017-03-23] MEDS: guaiFENesin 20 MG/ML UDC PO PRN (02:56)
--- NOTE | 2017-03-23 03:00 | NUR ---
PATIENT STATED," CAN I HAVE SOMETHING TO STOP COUGHING." ROBITUSSIN GIVEN ORDERED. PATIENT TOLERATED WELL. NO S/S OF DISTRESS NOTED, RESPIRATION EVEN AND UNLABORED, CALL LIGHT WITHIN REACH, SAFETY MEASURE ENSURED, WILL CONTINUE TO MONITOR.
[2017-03-23 04:00] VITALS: BP 102/78
--- NOTE | 2017-03-23 05:18 | NUR ---
PATIENT WAS SLEEPING, EASY TO AROUSE, DUE MEDICATION GIVEN, PATIENT TOLERATED WELL. NO S/S OF DISTRESS NOTED, RESPIRATION EVEN AND UNLABORED, CALL LIGHT WITHIN REACH, SAFETY MEASURE ENSURED ,WILL CONTINUE TO MONITOR.
[2017-03-23] MEDS ORDERED: ENOXAPARIN 40 MG/0.4 ML SYR SUBQ SCH ×2 (06:00→09:00)
[2017-03-23 06:42] LABS: ALBUMIN 2.5 g/dL (3.4-5.0); ANION GAP 14.2 (8-16); CARBON DIOXIDE 25.3 mmol/L (21-32); POTASSIUM 3.5 mmol/L (3.5-5.1); TOTAL BILIRUBIN 3.2 mg/dL (0.0-1.0)
--- NOTE | 2017-03-23 07:14 | NUR ---
ENDORSED PLAN OF CARE TO DAY RN, PATIENT IS IN STABLE CONDITION, NO S/S OF DISTRESS NOTED.
--- NOTE | 2017-03-23 07:15 | NUR ---
RECEIVED REPORT FROM PUBLIC SERVICE ADMINISTRATOR NURSE MEET AT BEDSIDE FOR CONTINUITY OF CARE. PT IN STABLE CONDITION. VENTURI MASK AT 50% ON. VS: BP 105/73, HR 95, RR 22, O2 SAT 96%, TEMP 97.6. PT DENIES PAIN. NO SIGNS OF RESPIRATORY DISTRESS. R/T IS IN ROOM FOR BREATHING TX. BED IN LOW POSITION, WHEELS LOCKED, CALL LIGHT WITHIN REACH. WILL CONTINUE TO MONITOR.
[2017-03-23 08:00] VITALS: BP 105/73
[2017-03-23] MEDS ORDERED: ASPIRIN 81 MG TAB.CHEW PO SCH (09:00)
[2017-03-23] MEDS ORDERED: methylPREDNISolone SS 40 MG/ML VIAL IVP SCH (09:00)
[2017-03-23] MEDS: SILDENAFIL 20 MG TAB PO SCH ×2 (09:29→13:04)
[2017-03-23 09:36] LABS: CREATINE KINASE MB 0.7 ng/mL (0-3.6)
--- NOTE | 2017-03-23 10:02 | NUR ---
PATIENT HAS BEEN SCREENED AND CATEGORIZED MODERATE NUTRITION RISK. PATIENT WILL BE SEEN WITHIN 3-5 DAYS OF ADMISSION. 03/25/17-03/27/[address]
--- NOTE | 2017-03-23 10:30 | NUR ---
CALLED DR. LANDON UPDATED THAT PT IS ON OXYMIZER 4L O2 SAT AT 95% AND PT REQUEST FOR SHOWER. PER DR. PERSAUD FOR ACTIVITY TO SHOWER.
--- NOTE | 2017-03-23 10:47 | NUR ---
FAXED TO [facility] [phone] PHONE [phone]
[2017-03-23 12:00] VITALS: BP 114/16
--- NOTE | 2017-03-23 13:20 | NUR ---
REPORTED TO DR. LANDON PT WAS POSITIVE FOR MRSA NARES. NO ORDERS FOR HOME TX. PLACE PT ON CONTACT PRECAUTIONS. DR. OROSCO OF D/C. ORDERED HOME OXYGEN 2L.
--- NOTE | 2017-03-23 13:38 | NUR ---
ATTEMPTED TO ADMINISTER BREATHING TX PT IS IN THE SHOWER AT THIS TIME WILL TRY AT A LATER TIME. NURSE SANCHEZ OROSCO.
--- NOTE | 2017-03-23 14:23 | NUR ---
RECEIVED ORDER FOR PATIENT TO GO HOME ON O2. I WENT TO SPEAK WITH THE PATIENT, AND SHE SAID SHE HAD O2 AND O2 CONCENTRATOR AT HOME.
--- NOTE | 2017-03-23 16:00 | NUR ---
PT D/C'D TO GO HOME. GAVE D/C FORMS, RX AND INSTRUCTIONS. PT VERBALIZED UNDERSTANDING AND SIGNED FORMS. PT'S FRIEND CAME TO COMPUTER SPECIALIST WITH OXYGEN FROM HOME. PT LEFT UNIT VIA WHEELCHAIR. IV CATHETER REMOVED FROM RIGHT HAND. IV CATHETER TIP INTACT. APPLIED DRESSING TO SITE. NO BLEEDING NOTED. REMOVED TELE MONITOR AND ID BAND. PT CHANGED IN OWN CLOTHES AND LEFT WITH ALL PERSONAL BELONGINGS.PT LEFT IN STABLE CONDITION.
[2017-03-24] MEDS ORDERED: ENOXAPARIN 40 MG/0.4 ML SYR SUBQ SCH (09:00)
== END 2017-03-23 16:00 | disposition home or self-care (01) | DRG 207 ==
LOC: MED 06:25 → MTU 09:11
PROVIDERS: ADMIT Internal Medicine; ATTEND Internal Medicine
PROC: 5A09357 Assistance with Respiratory Ventilation, Less than 24 Consecutive Hours, Continuous Positive Airway Pressure (ICD-10-PCS; principal; 2017-03-22)
DX: I27.20 Pulmonary hypertension, unspecified (principal); J96.01 Acute respiratory failure with hypoxia; I50.810 Right heart failure, unspecified; I27.81 Cor pulmonale (chronic); F12.90 Cannabis use, unspecified, uncomplicated; F15.11 Other stimulant abuse, in remission; I07.1 Rheumatic tricuspid insufficiency; E66.9 Obesity, unspecified; E87.6 Hypokalemia; Z68.38 Body mass index [BMI] 38.0-38.9, adult; Z79.899 Other long term (current) drug therapy; Z99.81 Dependence on supplemental oxygen
CPT/HCPCS: 36415; 71010; 80053; 80305; 82550; 82553; 83880; 84484; 85025; 87081; 93005; 94640; 96361; 96374; 99285; J1650; J2250; J2920; J2930; J7030; J7613; J7620; J7644; Q0092

== ENCOUNTER 2017-07-19 19:47 | Emergency (ER) | payer OTHER ==
[~2017-07-19] VITALS: Ht 167.6 cm; Wt 97.9 kg
[2017-07-19 19:51] VITALS: BP 140/69
--- NOTE | 2017-07-19 19:59 | NUR ---
PT.AMBULATED TO ER BED 10, MADE AWARE OF PT. STATUS.
--- NOTE | 2017-07-19 20:00 | NUR ---
41/F CAME IN WITH FRIEND, C/O SOB X2 DAYS, PT HAS O2 2.5L AT HOME, CPAP AT NIGHT BUT DOESN'T USE IT, NEBULIZER TX. PT DENIES CP, FEVER, N/V/D, DYSURIA. AOX4, AMBULATORY, RR EVEN AND SLIGHTLY LABORED AND TACHYPNIC. HX CHF, HTN. NKA. PT PLACED ON O2 NC, OFFICE MANAGER EXECUTIVE ASSISTANT. STACY FERRO AWARE. Addendum: 07/19/17 at 2232 by RAMA BLE +1 PITTING EDEMA
[2017-07-19] MEDS ORDERED: KETOROLAC 30 MG/ML VIAL IM ONE (20:05)
[2017-07-19 20:31] LABS: BASOPHILS # (AUTO) 0.1 K/uL (0.00-0.22); EOSINOPHILS % (AUTO) 0.1 % (0.0-4.0); HEMOGLOBIN 11.7 g/dL (12.0-16.0); MONOCYTES # (AUTO) 0.8 K/uL (0.8-1.0); RED BLOOD CELL COUNT(AUTO) 4.71 MIL/uL (4.20-5.40); RED CELL DISTRIBUTION WIDTH 18.6 % (11.6-13.7)
[2017-07-19 20:35] LABS: BASOPHILS % (AUTO) 1.5 % (0.0-2.0); LYMPHOCYTES % (AUTO) 17.8 % (20.5-51.1); MEAN CORPUSCULAR HEMOGLOBIN 25 pg (27-31); MEAN CORPUSCULAR HGB CONC 32 g/dL (33-37); MEAN CORPUSCULAR VOLUME 78.6 fL (80-94); MONOCYTES % (AUTO) 14.8 % (1.7-9.3); NEUTROPHILS # (AUTO) 3.5 K/uL (1.8-7.7); PLATELET COUNT (AUTO) 154 K/uL (140-450); WHITE BLOOD COUNT (AUTO) 5.4 K/uL (4.8-10.8)
[2017-07-19 20:40] LABS: NEUTROPHILS % (AUTO) 65.8 % (42.2-75.2)
[2017-07-19 21:07] LABS: ALBUMIN 2.9 g/dL (3.4-5.0); ANION GAP 11.8 (8-16); CARBON DIOXIDE 26.3 mmol/L (21-32); TOTAL BILIRUBIN 2.6 mg/dL (0.0-1.0)
[2017-07-19 21:09] LABS: CREATINE KINASE MB 0.5 ng/mL (0-3.6)
[2017-07-19 21:10] LABS: POTASSIUM 2.1 mmol/L (3.5-5.1)
[2017-07-19] MEDS ORDERED: KCL 20 MEQ/WATER INJ PREMIX 200 ML IV ONE (21:15)
--- NOTE | 2017-07-19 22:10 | NUR ---
PT RESTING COMFORTABLY, RR EVEN AND SLIGHTLY TACHYPNIC. ALL NEEDS MET.
[2017-07-19 22:17] LABS: BARBITURATE, URINE NEG. ng/ml (NEG <=200); BENZODIAZEPINE, URINE NEG. ng/mL (NEG <=200); CANNABINOID, URINE NEG. ng/mL (NEG <=50); COCAINE, URINE NEG. ng/mL (NEG <=300); OPIATE, URINE NEG. ng/mL (NEG <=2000); PHENCYCLIDINE SCREEN,URINE NEG. ng/mL (NEG <=25)
--- NOTE | 2017-07-20 01:00 | NUR ---
PT SLEEPING COMFORTABLY IN BED, RR EVEN AND TACHYPNIC. SPO2 94% ON O2 5L NC. ALL NEEDS MET. IVPB INFUSING WELL.
[2017-07-20 02:08] LABS: CARBON DIOXIDE 26.9 mmol/L (21-32)
[2017-07-20 02:09] LABS: ANION GAP 11.7 (8-16); CREATININE 0.8 mg/dL (0.6-1.3)
[2017-07-20 02:11] LABS: POTASSIUM 2.6 mmol/L (3.5-5.1)
--- NOTE | 2017-07-20 02:15 | NUR ---
Patient appears to be resting comfortably in bed. Vital Signs within normal limits. Respirations even and unlabored.
--- NOTE | 2017-07-20 03:04 | NUR ---
Patient discharged with v/s stable. Written and verbal after care instructions given and explained. Patient verbalized understanding. Ambulatory with steady gait. All questions addressed prior to discharge. Advised to follow up with PMD.
[2017-07-20 03:09] VITALS: BP 120/84
== END 2017-07-20 03:04 | disposition home or self-care (01) ==
LOC: MED 19:47
DX: E87.6 Hypokalemia (principal); R07.89 Other chest pain; I50.9 Heart failure, unspecified; I10 Essential (primary) hypertension; Z79.899 Other long term (current) drug therapy
CPT/HCPCS: 36415; 71045; 80048; 80053; 80305; 81002; 81025; 82550; 82553; 83690; 83880; 84484; 85025; 96365; 96366; 96372; 99285; J1885; J3480; J7030; Q0092

== ENCOUNTER 2018-05-16 12:25 | Inpatient (IN) | payer OTHER ==
[~2018-05-16] VITALS: Ht 167.6 cm; Wt 106.6 kg
[2018-05-16 12:25] VITALS: BP 113/54
--- NOTE | 2018-05-16 12:25 | NUR ---
PATIENT WHEELCHAIR ASSISTED TO BED 2.
--- NOTE | 2018-05-16 12:30 | NUR ---
place on 8L Simple Mask. Pulse ox=88%. INformed er md ross of patient's status. Gave report to Eric ROMAN.
--- NOTE | 2018-05-16 13:00 | NUR ---
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 Clear speech with 2-3 words phrases. RR are tachypneic and labored. With personal oxygen NC at 4L. PUlse ox=80% on ra. 3+ pitting edema to bl legs. PT REPORTED DC FROM [facility] TODAY. hx--copd, chf. DENIES N/V/D; SKIN IS PINK/WARM/DRY; LUNG : LEFT SIDE DEMINISHED. PT DENIES ANY FEVER AT THIS TIME; PATIENT STATES PAIN OF 8/10 AT THIS TIME.PATIENT POSITIONED FOR COMFORT; HOB ELEVATED; BEDRAILS UP X2; BED DOWN. ER MD MADE AWARE OF PT STATUS.
--- NOTE | 2018-05-16 13:00 | NUR ---
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 Clear speech with 2-3 words phrases. RR are tachypneic and labored. With personal oxygen NC at 4L. PUlse ox=80% on ra. 3+ pitting edema to bl legs. PT REPORTED DC FROM [facility] TODAY. hx--copd, chf rx--unable to obtain d/t patient condition. DENIES N/V/D; SKIN IS PINK/WARM/DRY; AAOX4 WITH EVEN AND STEADY GAIT; LUNG LEFT DEMINISHED. PT DENIES ANY FEVER, CP, SOB, OR COUGH AT THIS TIME; PATIENT STATES PAIN OF 8/10 AT THIS TIME.PATIENT POSITIONED FOR COMFORT; HOB ELEVATED; BEDRAILS UP X2; BED DOWN. ER MD MADE AWARE OF PT STATUS.
[2018-05-16] MEDS ORDERED: cefTRIAXone 1,000 MG in DEXT 5% MINI-BAG PLUS 50 ML IV ONE (13:10)
[2018-05-16] MEDS ORDERED: FUROSEMIDE 40 MG/4 ML VIAL IVP ONE (13:10)
[2018-05-16 13:19] LABS: BASOPHILS # (AUTO) 0.1 K/uL (0.00-0.22); BASOPHILS % (AUTO) 1.3 % (0.0-2.0); EOSINOPHILS # (AUTO) 0.1 K/uL (0-0.4); EOSINOPHILS % (AUTO) 1.5 % (0.0-4.0); HEMATOCRIT 38.7 % (36-48); HEMOGLOBIN 12.2 g/dL (12.0-16.0); LYMPHOCYTES # (AUTO) 0.8 K/uL (2.5-16.5); LYMPHOCYTES % (AUTO) 13.9 % (20.5-51.1); MEAN CORPUSCULAR HEMOGLOBIN 27 pg (27-31); MEAN CORPUSCULAR HGB CONC 32 g/dL (33-37); MEAN CORPUSCULAR VOLUME 85.6 fL (80-94); MONOCYTES # (AUTO) 1.1 K/uL (0.8-1.0); MONOCYTES % (AUTO) 18.1 % (1.7-9.3); NEUTROPHILS # (AUTO) 3.9 K/uL (1.8-7.7); NEUTROPHILS % (AUTO) 65.2 % (42.2-75.2); PLATELET COUNT (AUTO) 201 K/uL (140-450); RED BLOOD CELL COUNT(AUTO) 4.53 MIL/uL (4.20-5.40); RED CELL DISTRIBUTION WIDTH 19.6 % (11.6-13.7); WHITE BLOOD COUNT (AUTO) 5.9 K/uL (4.8-10.8)
--- NOTE | 2018-05-16 13:23 | NUR ---
LAB AT BEDSIDE.
[2018-05-16] MEDS ORDERED: cefTRIAXone 1,000 MG VIAL ONE (13:24)
[2018-05-16 13:25] LABS: ANION GAP 7.6 (8-16); CARBON DIOXIDE 26.1 mmol/L (21-32); CREATININE 1.1 mg/dL (0.6-1.3); POTASSIUM 3.7 mmol/L (3.5-5.1)
--- NOTE | 2018-05-16 13:25 | NUR ---
PT URENATED 200 CC.
[2018-05-16 13:42] LABS: APPEARANCE,URINE SL CLOUDY (CLEAR); BILIRUBIN,URINE 1+ (NEGATIVE); BLOOD, URINE 3+ (NEGATIVE); COLOR,URINE YELLOW (YELLOW); LEUKOCYTE ESTERASE ,URINE 1+ (NEGATIVE); NITRITE, URINE NEGATIVE (NEGATIVE); UGLUCOSE NEGATIVE (NEGATIVE)
[2018-05-16 13:42] LABS: ALBUMIN 2.6 g/dL (3.4-5.0); TOTAL BILIRUBIN 5.5 mg/dL (0.0-1.0)
--- NOTE | 2018-05-16 13:49 | NUR ---
Patient being evaluated by DR DENNIS at bedside.
--- NOTE | 2018-05-16 13:54 | NUR ---
PULSE OX 83%. RT AT BEDSIDE FOR BIPAP. Addendum: 05/16/18 at 1428 by [email or web address] BIPAP IPAP 12 EPAP 6 R 16 O2 100
[2018-05-16] MEDS ORDERED: MORPHINE SULFATE 4 MG/ML SYR IVP ONE (13:55)
[2018-05-16 14:01] LABS: RBC,URINE 50-80 /HPF (0-5); WBC,URINE 16-25 (MOD) /HPF (0-5)
[2018-05-16 14:10] VITALS: BP 116/79
[2018-05-16] MEDS ORDERED: ACETAMINOPHEN 325 MG TAB PO PRN (14:10)
[2018-05-16] MEDS ORDERED: ONDANSETRON 4 MG/2 ML VIAL IVP PRN (14:10)
[2018-05-16] MEDS ORDERED: LORazepam 2 MG/ML VIAL IVP PRN (14:10)
[2018-05-16] MEDS ORDERED: ALBUTEROL 0.083% 2.5 MG/3 ML NEBU INH PRN (14:10)
--- NOTE | 2018-05-16 14:13 | NUR ---
Maine liu in [facility] - 05/16/18 at 1413 by [email or web address] PT URENATED 200 CC.
--- NOTE | 2018-05-16 14:13 | NUR ---
PT URENATED 300 CC.
--- NOTE | 2018-05-16 14:19 | NUR ---
Patient being evaluated by DR YEPEZ at bedside.
--- NOTE | 2018-05-16 14:55 | NUR ---
PATIENT TRANSFERRED TO [facility] 112-A ON BIPAP TO MASK E-TANK ADEQUATE LEVELS (2000/1000) TOLERATED TRANSFER WELL WITHOUT INCIDENT SATURATION 92% HR 96 BPM 26-28
[2018-05-16 15:10] VITALS: BP 99/70
--- NOTE | 2018-05-16 15:10 | NUR ---
REPORT RECEIVED FROM LENS FINISHER, PT PLACED ON KALSOMINER, VITALS TAKEN, PT RESTING QUIETLY, ON BIPAP, 100% O2, PULSE OX 91-93%, RR 28-30, AROUSALBLE BY VOICE, DENIES CHEST PAIN OR DISCOMFORT, PT ORIENTED TO ROOM AND UNIT, PLAN OF CARE REVIEWED, ALL SAFETY MEASURES IN PLACE, WILL CONTINUE TO MONITOR.
--- NOTE | 2018-05-16 15:10 | NUR ---
Patient will be admitted to [facility]. Admited to TELE. Will go to room 112B. Belongings list completed. Report to ROGER ROMAN.
[2018-05-16] MEDS: AZITHROMYCIN 500 MG in DEXTROSE 5% 250 ML IV SCH (15:51)
[2018-05-16 16:00] VITALS: BP 109/66
[2018-05-16] MEDS: ALBUTEROL 0.083% 2.5 MG/3 ML NEBU IH PRN ×2 (17:00→20:02)
[2018-05-16] MEDS ORDERED: SILDENAFIL CITRATE 50 MG PO SCH (17:00)
--- NOTE | 2018-05-16 17:22 | NUR ---
REVIEWED SATURATION OF 88%-90% WITH ROGER/RN HAND FINGERS COLD FOREMENTIONED RN TO MOVE PROBE TO EAR
--- NOTE | 2018-05-16 17:30 | NUR ---
PULSE OX PROBE MOVED TO LEFT TOE, O2 SAT READING 96% NOW, RT GURMEET NOTIFIED.
--- NOTE | 2018-05-16 18:20 | NUR ---
PT SLEEPING QUIETLY IN NAD, RESP EVEN UNLABORED ON BIPAP AT 95% FIO2, O2 SAT 91-92%, PT AROUSES EASILY, DENIES PAIN OR DISCOMFORT, UNCLE AT BEDSIDE, PT DENIES NEED TO USE BATHROOM AT THIS TIME, WILL CONTINUE TO MONTIOR.
--- NOTE | 2018-05-16 18:30 | NUR ---
DINNER HELD DUE TO NEED FOR BIPAP, WILL KEEP TRAY FOR LATER IF PATIENT IMPROVES AND ABLE TO BE OFF BIPAP. WILL REPORT TO NEXT SHIFT.
--- NOTE | 2018-05-16 19:14 | NUR ---
RECEIVED PATIENT ON BIPAP, LAZARO V60 ON SETTINGS ST 12, RATE 16, 95%. TOLERATING BIPAP WELL. PATIENT STATING TO BE "FELLING MUCH BETTER." NO SOB/WHEEZING; NO HHN INDICATED AT THIS TIME. PROTECTIVE SKIN BARRIER IN PLACE. SKIN INTACT. NO REDNESS. FAMILY AT BEDSIDE. NO RESPIRATORY DISTRESS NOTED AT THIS TIME. WILL CONTINUE TO MONITOR.
--- NOTE | 2018-05-16 19:20 | NUR ---
REPORT GIVEN TO TOWN PLANNER NURSE SOHA AND KIRIT, PT IN STABLE CONDITION, PT AWAKE ALERT, STATES SHE FEELS MUCH BETTER THAN BEFORE. FAMILY AT BEDSIDE. RT AT BEDSIDE.
--- NOTE | 2018-05-16 19:21 | NUR ---
RECEIVED ENDORSEMENT FROM AM JESSIE DURAN; PATIENT A/Ox4, ABLE TO MAKE NEEDS KNOWN. ORIENTED SELF AND RN SOHA TO PATIENT. ON BIPAP, FiO2 100%. NO SOB OR DISTRESS NOTED. CURRENT O2Sat 92%. PLAN OF CARE REVIEWED. BED IN THE LOWEST POSITION, CALL LIGHT WITHIN REACH. INITIAL ASSESSMENT DONE, ALL SAFETY MEASURES IN PLACE. WILL CONTINUE TO MONITOR.
[2018-05-16 20:00] VITALS: BP 105/71
--- NOTE | 2018-05-16 20:00 | NUR ---
CALLED BY RN TO ASSESS PATIENT DUE TO DESATURATION. PULSE OX PROBE AND SITE CHANGED. ADMINISTERED PRN BREATHING TX, TOLERATED WELL. NO ADVERSE SIDE EFFECTS. PULSE OX SATURATION REMAINED 88-89%. BIPAP SETTINGS ADJUSTED DOCUMENTED IN RT CHARTING TO MAINTAIN PULSE OX SATURATION >92% ORDERED. WILL TITRATE TOLERATED. WILL CONTINUE TO MONITOR.
--- NOTE | 2018-05-16 20:50 | NUR ---
TOOK OFF ON BIPAP FOR SEVERAL SECONDS AND PROVIDED WITH ICE CHIPS, TOLERATED WELL, SAT DROP TO 85% WHILE OFF ON BIPAP, PUT BACK ON BIPAP AND SAT WENT UP TO 91-92%, PT DENIES SOB OR CHEST PAIN, ON HIGH FOWLERS AT THIS TIME, MONITORED CLOSELY.
[2018-05-16 21:54] LABS: CREATINE KINASE MB 1.9 ng/mL (0-3.6)
[2018-05-17] VITALS: BP 100/65
--- NOTE | 2018-05-17 00:01 | NUR ---
TOOK VITAL SIGNS, ALL WITHIN NORMAL LIMITS. CURRENT O2Sat 92%; PATIENT ASKED FOR WATER, DISCONNECTED PATIENT FROM BI-PAP MACHINE FOR SEVERAL SECONDS. RECONNECTED PATIENT, NO SOB OR DISTRESS NOTED. WILL CONTINUE TO MONITOR.
--- NOTE | 2018-05-17 02:10 | NUR ---
ROUNDS MADE. NO SOB OR DISTRESS NOTED. WILL CONTINUE TO MONITOR.
--- NOTE | 2018-05-17 02:50 | NUR ---
PATIENT ASKED FOR A CUP OF JELLO AND HALF A CUP OF WATER. TOOK OFF BI-PAP MASK FOR 3 MINUTES, O2Sat DROPPED FROM 92% TO 90%, CLOSELY MONITORED. PUT BI-PAP MASK ON PATIENT AFTER PATIENT FISHED EATING, O2Sat INCREASED TO 93%. WILL CONTINUE TO MONITOR.
[2018-05-17 04:00] VITALS: BP 113/53
--- NOTE | 2018-05-17 04:00 | NUR ---
VITAL SIGNS TAKEN, ALL WNL. WILL CONTINUE TO MONITOR.
[2018-05-17 06:34] LABS: BASOPHILS # (AUTO) 0.1 K/uL (0.00-0.22); BASOPHILS % (AUTO) 1.3 % (0.0-2.0); EOSINOPHILS # (AUTO) 0.1 K/uL (0-0.4); EOSINOPHILS % (AUTO) 1.4 % (0.0-4.0); HEMOGLOBIN 12.7 g/dL (12.0-16.0); LYMPHOCYTES # (AUTO) 0.9 K/uL (2.5-16.5); LYMPHOCYTES % (AUTO) 17.3 % (20.5-51.1); MEAN CORPUSCULAR HEMOGLOBIN 27 pg (27-31); MEAN CORPUSCULAR HGB CONC 32 g/dL (33-37); MEAN CORPUSCULAR VOLUME 86.1 fL (80-94); MONOCYTES # (AUTO) 1.1 K/uL (0.8-1.0); MONOCYTES % (AUTO) 19.7 % (1.7-9.3); NEUTROPHILS # (AUTO) 3.3 K/uL (1.8-7.7); NEUTROPHILS % (AUTO) 60.3 % (42.2-75.2); PLATELET COUNT (AUTO) 190 K/uL (140-450); RED BLOOD CELL COUNT(AUTO) 4.65 MIL/uL (4.20-5.40); RED CELL DISTRIBUTION WIDTH 19.5 % (11.6-13.7); WHITE BLOOD COUNT (AUTO) 5.4 K/uL (4.8-10.8)
[2018-05-17 06:41] LABS: ALBUMIN 2.8 g/dL (3.4-5.0); ANION GAP 10.2 (8-16); CARBON DIOXIDE 27.2 mmol/L (21-32); CREATININE 1.1 mg/dL (0.6-1.3); MAGNESIUM 1.5 mg/dL (1.8-2.4); POTASSIUM 4.4 mmol/L (3.5-5.1); TOTAL BILIRUBIN 6.6 mg/dL (0.0-1.0)
[2018-05-17 06:53] LABS: CREATINE KINASE MB 1.7 ng/mL (0-3.6)
--- NOTE | 2018-05-17 07:05 | NUR ---
PT THIRSTY, PROVIDED WITH APPLE JUICE X2, TOLERATED WELL, DESATURATES TO 85% WHEN OFF BIPAP, RECONNECTED TO BIPAP AND SAT WENT UP TO 90-91%, ON HIGH FOWLERS POSITION, MONITORED CLOSELY.
--- NOTE | 2018-05-17 07:11 | NUR ---
ENDORSED PATIENT TO AM SHIFT RN. PATIENT IN STABLE CONDITION.
--- NOTE | 2018-05-17 07:12 | NUR ---
RECEIVED BEDSIDE REPORT FROM INFORMATION MANAGER NURSE. PATIENT AAOX4. PATIENT ON BIPAP MACHINE SETTINGS ON FIO2 95%, RATE 16, IPAP 12, EPAP 6, NO DISTRESS NOTED. PATIENT CONTINENT. SKIN INTACT. BLE EDEMA, ABSENCE OF PITTING EDEMA. IV ON L WRIST SALINE LOCK. IV CLEAN DRY AND INTACT. PATIENT ON TELE MONITOR. 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 BED IN LOW POSITION, CALL LIGHT WITHIN REACH. WILL CONTINUE TO MONITOR.
[2018-05-17] MEDS: ALBUTEROL 0.083% 2.5 MG/3 ML NEBU IH PRN ×2 (07:41→20:06)
--- NOTE | 2018-05-17 07:42 | NUR ---
RECEIVED PT ON BIPAP 12/, R16, FIO2 95%. PT TOLERATING SETTINGS WELL AT THIS TIME. PT IS TACHYPNEIC BUT PT STATES HER BREATHING IS "MUCH BETTER. PROTECTA GEL IS UNDER MASK FOR SKIN PROTECTION. BIPAP ALARMS ARE ON AND FUNCTIONING. PRN BREATHING TX ADMINISTERED. WILL CONTINUE TO MONITOR.
[2018-05-17 08:00] VITALS: BP 111/71
[2018-05-17] MEDS ORDERED: FUROSEMIDE 40 MG TAB PO SCH (08:00)
--- NOTE | 2018-05-17 08:07 | NUR ---
PT TAKEN OFF OF BIPAP DUE TO PT WANTING TO EAT. PT PLACED ON 8L OXYMIZER SPO2 92% AT THIS TIME. PT STATES SHE IS NOT SOB AND BREATHING IS FINE. WILL CONTINUE TO MONITOR. NURSE AWARE.
--- NOTE | 2018-05-17 08:15 | NUR ---
PATIENT HAS BEEN SCREENED AND CATEGORIZED MODERATE NUTRITION RISK. PATIENT WILL BE SEEN WITHIN 3-5 DAYS OF ADMISSION. 05/19/18ABHISHEK [address]MI[address]
--- NOTE | 2018-05-17 08:40 | NUR ---
PT PLACED BACK ON BIPAP WITH ORIGINAL DOCUMENTED SETTINGS DUE TO SPO2 IN THE LOW 80'S. PT TACHYPNEIC AT THIS TIME. NURSE MADE AWARE.
[2018-05-17] MEDS: ASPIRIN 81 MG TAB.CHEW PO SCH (08:43)
[2018-05-17] MEDS: POTASSIUM CHLORIDE 10 MEQ TABER PO SCH (08:43)
[2018-05-17] MEDS: FUROSEMIDE 40 MG/4 ML VIAL IVP SCH (08:44)
[2018-05-17] MEDS: ENOXAPARIN 40 MG/0.4 ML SYR SUBQ SCH (08:47)
--- NOTE | 2018-05-17 09:15 | NUR ---
ADMINISTERED SCHEDULED MEDS. PATIENT TOLERATED PO MEDS WELL. PATIENT REQUESTED BED DHILLON. WILL CONTINUE TO MONITOR.
--- NOTE | 2018-05-17 09:25 | NUR ---
FIO2 TITRATED TO 90%. SPO2 94% AT THIS TIME.
--- NOTE | 2018-05-17 11:23 | NUR ---
CALLED DR. ROUSE OFFICE AND SPOKE WITH CHRIS , I SET UP AN APPOINTMENT WITH DR. WILLS FOR SundayJULY 03 AT 10A.M, EARLIEST APPOINTMENT. [id number] [place] [address] [address] PHONE [phone]. CHRIS SAID THAT THIS PATIENT ALREADY HAS AN APPOINTMENT WITH DR. MARTINEZ ON June AT 9:30A.M. GAVE APPOINTMENT FOR DR. WILLS TO PATIENT.
--- NOTE | 2018-05-17 11:57 | NUR ---
FIO2 TITRATED TO 85% SPO2 92%. PT IS ASLEEP AT THIS TIME. PT REMAIN TACHYPNEIC NURSE UPDATED ON PT STATUS. WILL CONTINUE TO MONITOR.
[2018-05-17 12:00] VITALS: BP 103/64
--- NOTE | 2018-05-17 15:00 | NUR ---
PATIENT REQUESTED BED DHILLON. URINE OUTPUT OF 200 ML. PATIENT STATED SHE FELT WINDED AFTER TURNING TO USE BED DHILLON. RT AT BEDSIDE. WILL CONTINUE TO MONITOR.
[2018-05-17] MEDS: AZITHROMYCIN 500 MG in DEXTROSE 5% 250 ML IV SCH (15:10)
--- NOTE | 2018-05-17 15:15 | NUR ---
PT RETURNED TO BIPAP AFTER BECOMING SOB AND SPO2 DECREASING TO MID 80'S ON OXYMIZER. ON BIPAP FIO2 INCREASED TO 90%. NURSE MADE AWARE . WILL CONTINUE TO MONITOR.
[2018-05-17 16:00] VITALS: BP 113/64
--- NOTE | 2018-05-17 17:54 | NUR ---
PT REMAINS ON BIPAP WITH DOCUMENTED SETTINGS. PT TOLERATING BIPAP WELL AT THIS TIME. PT REMAINS TACHYPNEIC AND SPO2 REMAINS AT 92%. BIPAP ALARMS REMAIN ON AND FUNCTIONING.
[2018-05-17] MEDS ORDERED: COMMUNICATION ORDER MC SCH (18:55)
--- NOTE | 2018-05-17 18:58 | NUR ---
FAMILY AT BEDSIDE. PATIENT IN STABLE CONDITION, W OXYMIZER, NO DISTRESS NOTED. WILL CONTINUE TO MONITOR.
--- NOTE | 2018-05-17 18:59 | NUR ---
WILL GIVE REPORT TO SENIOR FRONT END DEVELOPER NURSE. PATIENT IN STABLE CONDITION W FAMILY AT BEDSIDE.
--- NOTE | 2018-05-17 19:08 | NUR ---
ADMINISTERED MAG KOLB. MG LEVEL 1.5. ENDORSED TO MILL TENDER WARM UP NURSE. PATIENT IN STABLE CONDITION.
--- NOTE | 2018-05-17 19:35 | NUR ---
PATIENT IS AWAKE, ALERT RESPIRATION EVEN AND UNLABORED ON BIPAP. DENIES PAIN OR DISCOMFORT. SKIN IS WARM AND DRY. IV IS INTACT AND PATENT. PLAN OF CARE WAS DISCUSSED. ALL SAFETY MEASURES IN PLACE. BED IS IN LOW POSITION. CALL LIGHT WITHIN REACH. WILL CONTINUE TO MONITOR.
[2018-05-17 20:00] VITALS: BP 110/67
[2018-05-17] MEDS ORDERED: NACL 0.9% IV SCH (20:00)
[2018-05-17] MEDS ORDERED: MAGNESIUM SULFATE IV SCH (20:00)
--- NOTE | 2018-05-17 20:00 | NUR ---
PATIENT IS AWAKE, ALERT, RESPIRATION EVEN AND UNLABORED ON BIPAP. NO DISTRESS NOTED AT THIS TIME. VITALS STABLE. FAMILY IS AT BEDSIDE. CALL LIGHT WITHIN REACH. WILL CONTINUE TO MONITOR.
--- NOTE | 2018-05-17 20:21 | NUR ---
CHANGED IPAP TO 10 AND EPAP TO 5. PT STATES THE PRESSURE IS TO MUCH. ALSO CHANGED MASK SIZE TO LARGE TO FIT HER FACE BETTER
--- NOTE | 2018-05-17 20:22 | NUR ---
INLINE HHNTX GIVEN WITH BIPAP
[2018-05-17] MEDS ORDERED: INFLUENZA VIRUS VACCINE QUAD 0.5 ML SYR IMVAC PRN (21:20)
[2018-05-18] VITALS (7 sets, daily range): BP systolic 95–119; BP diastolic 50–79
--- NOTE | 2018-05-18 | NUR ---
PATIENT IS SLEEPING COMFORTABLY NO DISTRESS NOTED. VITAL SIGNS STABLE. CALL LIGHT WITHIN REACH
--- NOTE | 2018-05-18 00:15 | NUR ---
PT STATED FEELING CLAUSTROPHOBIC AND TOOK OFF HER BIPAP, PT REFUSED TO WEAR IT AGAIN, PT IS CURRENTLY ON OXYMIZER 10ML, SATURATION 88%, NO DISTRESS NOTED, PT STATED SHE USUALLY HAVE O2 SAT AT 83% AT HOME, AND SHE FEELS COMFORTABLE RIGHT NOW. PT RESTING, NO DISTRESS NOTED, CALL LIGHT WITHIN REACH, WILL CONTINUE TO MONITOR.
--- NOTE | 2018-05-18 01:43 | NUR ---
0025 JESSIE SANTANA TOOK PT OFF BIPAP. PT STATES SHES CLAUSTROPHOBIC. PLACED PT ON 10 OXYMIZER. SATS ARE 88 TO 89%
[2018-05-18] MEDS: HYDROcodone/APAP 5/325 MG 1 TAB TAB PO PRN ×2 (03:15→20:08)
--- NOTE | 2018-05-18 03:15 | NUR ---
PATIENT IS COMPLAINING OF GENERALIZED PAIN AND DISCOMFORT 6/10. PRN PAIN MEDS GIVEN. CALL LIGHT WITHIN REACH. WILL CONTINUE TO MONITOR
--- NOTE | 2018-05-18 04:20 | NUR ---
PATIENT HEART RATE ELEVATED 130-150 ASKED IF SHE'S FEELING OKAY. PATIENT STATED YES. WENT BACK TO SLEEP. ASKED PATIENT IF SHE WANTS TO WEAR BIPAP ON PATIENT REFUSED. PATIENT STILL ON OXIMIZER SATING 85-87% WILL NOTIFY WILL CONTINUE TO MONITOR.
--- NOTE | 2018-05-18 04:30 | NUR ---
CALLED DR. ARELLANO REGARDING PATIENT ELEVATED HR CONDITION. STATED SINCE PATIENT REFUSING TO WEAR BIPAP THERE'S NOTHING WE CAN DO JUST CONTINUE TO MONITOR.
[2018-05-18] MEDS: ALBUTEROL 0.083% 2.5 MG/3 ML NEBU IH PRN (06:58)
[2018-05-18 07:31] LABS: ALBUMIN 2.7 g/dL (3.4-5.0); ANION GAP 12.8 (8-16); CARBON DIOXIDE 24.4 mmol/L (21-32); POTASSIUM 4.2 mmol/L (3.5-5.1); TOTAL BILIRUBIN 7.2 mg/dL (0.0-1.0)
--- NOTE | 2018-05-18 07:31 | NUR ---
ENDORSED PATIENT TO [facility] NURSE FOR CONTINUITY OF CARE. PATIENT IS STABLE AT THIS TIME.
--- NOTE | 2018-05-18 07:33 | NUR ---
RECEIVED BEDSIDE REPORT FROM DEFENSE ANALYST NURSE. PATIENT IS AOX4. DENIES OF PAIN. NO SIGNS OF DISTRESS NOTED. PATIENT REFUSED TO WEAR BIPAP, AND IS ON OXIMIZER, SPO2 82%. WILL MONITOR SPO2 CLOSELY. IV 22G ON L WRIST, NOT INFUSING. IV SITES ARE DRY AND CLEAN. ABLE TO AMBULATE. SKIN INTACT, DRY AND CLEAN. SAFETY MEASURES IN PLACE. CONTACT PRECAUTION IN PLACE. BED IN LOW POSITION, CALL LIGHT WITHIN REACH. REVIEW PLAN OF CARE WITH PATIENT, PATIENT VERBALIZED UNDERSTANDING. WILL CONTINUE TO MONITOR.
[2018-05-18] MEDS ORDERED: cefTRIAXone 1,000 MG VIAL ONE (09:52)
[2018-05-18] MEDS: ASPIRIN 81 MG TAB.CHEW PO SCH (09:52)
[2018-05-18] MEDS: FUROSEMIDE 40 MG/4 ML VIAL IVP SCH (09:52)
[2018-05-18] MEDS: POTASSIUM CHLORIDE 10 MEQ TABER PO SCH (09:53)
[2018-05-18] MEDS: ENOXAPARIN 40 MG/0.4 ML SYR SUBQ SCH (10:04)
--- NOTE | 2018-05-18 10:15 | NUR ---
ADMINISTERED MEDS PER MD ORDER. PATIENT TOLERATED WELL. PATIENT REFUSED TO PUT ON BIPAP. HER CURRENT SPO2 90. WILL CONTINUE TO MONITOR.
--- NOTE | 2018-05-18 11:00 | NUR ---
PT UP TO BATHROOM WITH STEADY GAIT, REPORTS HAD LARGE BM, PT ASSISTED BACK TO BED.
[2018-05-18] MEDS: SILDENAFIL 50 MG PO SCH ×2 (11:57→20:07)
--- NOTE | 2018-05-18 12:09 | NUR ---
PT PLACED BACK ON BIPAP DUE TO LOW O2SAT OF 85% ALARMS ON AND AUDIBLE AMBU BAG AT SIDE FO BIPAP AND BIPAP IS PLUGGED INTO RED OUTLET.
--- NOTE | 2018-05-18 12:15 | NUR ---
PATIENT STATED THAT SHE FEELS VERY ANXIOUS AND DISCOMFORT WHEN SHE IS WEARING THE BIPAP. ADMINISTERED PRN ATIVAN VIA IVP. PATIENT'S SPO2 IS ON 97% AT THIS TIME. WILL CONTINUE TO MONITOR.
--- NOTE | 2018-05-18 12:42 | NUR ---
PT TOOK OFF HER BIPAP MASK ON HER OWN BECAUSE SHE WANTED TO EAT LUNCH, PT REFUSES TO PUT BIPAP BACK ON, PLACED ON OXYMIZER.
--- NOTE | 2018-05-18 14:19 | NUR ---
PT FOUND ON THE FLOOR NEAR THE BEDSIDE COMMODE BY STUDENT NURSE, PT SITTING ON HER OWN URINE, PT STATES SHE WAS TRYING TO USE THE COMMODE BUT MISSED AND SAT ON THE FLOOR, PT DENIES LOC, PT DENIES HITTING HEAD, DENIES ANY PAIN, MOVES ALL EXT WITHOUT PROBLEM, NO OBVIOUS INJURY NOTED, PT CLEANED, ASSISTED BACK TO BED, BED ALARM ON, PT INSTRUCTED TO USE CALL LIGHT BEFORE ATTEMPTING TO GET OUT OF BED. PT VERBALIZED FULL UNDERSTANDING.
--- NOTE | 2018-05-18 14:25 | NUR ---
PT HR INCREASED TO 120-130 NOW, DR YEPEZ MADE AWARE, NO NEW ORDERS, WILL CONSULT DR AVILA. DR YEPEZ AT BEDSIDE, DR YEPEZ ALSO MADE AWARE OF PT FALLING ON THE FLOOR, NO NEW ORDERS AT THIS TIME.
--- NOTE | 2018-05-18 17:07 | NUR ---
PT OFF BIPAP PLACED ON 10L OXIMZER RN ROGER NOTIFIED
--- NOTE | 2018-05-18 17:10 | NUR ---
DR MARGARITA Ledezma IS AT BEDSIDE TALKING TO PATIENT.
--- NOTE | 2018-05-18 19:15 | NUR ---
ENDORSED PATIENT TO CHIEF STRATEGY OFFICER NURSE FOR CONTINUITY OF CARE. PATIENT IS SLEEPING AND IN STABLE CONDITION. NO SIGNS OF DISTRESS NOTED.
--- NOTE | 2018-05-18 19:16 | NUR ---
REPORT RECEIVED FROM AM NURSE AT BEDSIDE. PT IN STABLE CONDITION. AAOX4. INTRODUCED SELF TO PT. BOARD UPDATED. PT HAS COMPLAINTS OF GENERAL PAIN. WILL MEDICATE. PT IS ON BIPAP@70% O2 SAT@99. WHEN OFF BIPAP O2 SAT@82-88%. AFEBRILE. IV SITE L HAND 22G SL PATENT AND INTACT. SKIN WARM, DRY, AND INTACT WITH NO OPEN WOUNDS. BED LOCKED IN LOW POSITION. CALL GRAY WITHIN REACH. SAFETY PRECAUTIONS IN PLACE. ALL NEEDS MET AT THIS TIME.
--- NOTE | 2018-05-18 20:08 | NUR ---
NORCO GIVEN FOR 6/10 PAIN. SILDENAFIL GIVEN PO. PT TOLERATED WELL.
[2018-05-18] MEDS ORDERED: CHLORHEXADINE GLUC 2% CLOTH TP SCH (21:00)
[2018-05-18] MEDS ORDERED: MUPIROCIN CA NASAL 2% 1GM TUBE NS SCH (21:00)
--- NOTE | 2018-05-18 21:00 | NUR ---
BACTROBAN NASAL OINTMENT AND CHLORHEXADINE NOT AVAILABLE.
--- NOTE | 2018-05-18 21:00 | NUR ---
[facility] CALLED FROM [facility] ABOUT TRANSFER OF PT. BED AVAILABLE ON UNIT 7300 ROOM 12 BED 1. ACCEPTING WILL BE DR. ORNELAS. WILL CALL IN TO GIVE REPORT.
--- NOTE | 2018-05-18 22:30 | NUR ---
PT DAUGHTER IN TO VISIT PT. ASKED QUESTIONS ABOUT MOTHER'S STATUS. EDUCATED DAUGHTER ABOUT MOTHERS CONDITION AND TRANSFER STATUS. DAUGHTER VERBALIZED UNDERSTANDING.
--- NOTE | 2018-05-18 22:40 | NUR ---
ATTEMPTED TO GIVEN UNIT 7300 REPORT. TALKED TO CHARGE NURSE. CHARGE NURSE STATES THIS PT NEEDS HIGHER LEVEL OF CARE DUE TO NEEDING CONTINUOUS BIPAP. UNIT UNABLE TO ACCEPT PT. WAITING WELDER FITTER FROM [facility] FOR NEW UNIT TRANSFER.
--- NOTE | 2018-05-18 22:45 | NUR ---
[facility] CALLED TO GIVE NEW INFORMATION ON NEW UNIT. PT TO BE TRANSFERRED TO UNIT 7200 ROOM 5. WILL CALL IN TO GIVE REPORT.
--- NOTE | 2018-05-18 22:50 | NUR ---
REPORT GIVEN TO JG RN FOR PT STATUS@[phone].
[2018-05-19] VITALS: BP 91/48
--- NOTE | 2018-05-19 00:30 | NUR ---
RT CALLED TO FIX BIPAP.
--- NOTE | 2018-05-19 01:36 | NUR ---
FLUVAC GIVEN IM. PT TOLERATED WELL.
--- NOTE | 2018-05-19 01:40 | NUR ---
[facility] ARRIVED TO [facility] PT TO TRANSFER TO [facility]. TELE MONITORING D/C. ARM BAND REMOVED.
== END 2018-05-19 02:00 | disposition short-term general hospital (02) | DRG 133 ==
LOC: MED 12:25 → MTU 14:09
PROVIDERS: ADMIT Hospitalist; ATTEND Hospitalist
PROC: 5A09457 Assistance with Respiratory Ventilation, 24-96 Consecutive Hours, Continuous Positive Airway Pressure (ICD-10-PCS; 2018-05-16)
PROC: 3E02340 Introduction of Influenza Vaccine into Muscle, Percutaneous Approach (ICD-10-PCS; principal; 2018-05-19)
DX: J96.21 Acute and chronic respiratory failure with hypoxia (principal); I50.23 Acute on chronic systolic (congestive) heart failure; J18.9 Pneumonia, unspecified organism; E44.0 Moderate protein-calorie malnutrition; I27.20 Pulmonary hypertension, unspecified; I11.0 Hypertensive heart disease with heart failure; I07.1 Rheumatic tricuspid insufficiency; Z68.42 Body mass index [BMI] 45.0-49.9, adult; N39.0 Urinary tract infection, site not specified; J44.9 Chronic obstructive pulmonary disease, unspecified; Z79.899 Other long term (current) drug therapy; Q21.1 Atrial septal defect; Z23 Encounter for immunization
CPT/HCPCS: 36415; 36600; 71045; 80053; 81001; 82550; 82553; 82803; 83605; 83735; 83880; 84484; 85025; 87040; 87081; 87086; 90658; 93005; 94640; 94660; 96365; 96375; 99285; J0456; J0696; J1650; J1940; J2060; J2270; J3475; J7030; J7060; J7613; Q0092